=== PATIENT | female | born 1955 | race Caucasian/White ===

== ENCOUNTER 2020-07-08 06:49 | Inpatient (IN) | payer MEDICAID, SELFPAY ==
[2020-07-08] VITALS (11 sets, daily range): BP systolic 96–163; BP diastolic 41–105
[~2020-07-08] VITALS: Ht 172.7 cm; Wt 90.7 kg
[~2020-07-08 06:49] MED LIST: NO MEDS
--- NOTE | 2020-07-08 06:49 | NUR ---
PT HA ALS. TAKEN TO BED 10
--- NOTE | 2020-07-08 06:52 | NUR ---
65 YO F [place] [facility] [place]/O DESATURATION, PT FOUND TO BE 80%. UPON ARRIVAL PT IS 100% SPO2. TRACH TO VENT, AFEBRILE @ THIS TIME 99.2 ST 120-130S, RR 30-40S. PEG TUBE IN PLACE CLAMPED, HYPOACTIVE BOWEL SOUNDS, INCONTINENT TO URINE/STOOL. SKIN NON INTACT WITH MULTIPLE WOUNDS. MIDLINE TO R UPPER ARM NOTED. GURNEY LOCKED IN LOWEST POSITION. ERMD MADE AWARE. HX: CHF, HTN, ENCEPHOLAPTHY, COVID, RESP FAILURE, PNA, DM AX: NKA
[2020-07-08] MEDS ORDERED: NACL 0.9% 500 ML IV ONE (07:15)
[2020-07-08] MEDS ORDERED: ASCO500T95 GT (07:22)
[2020-07-08] MEDS ORDERED: PANT40EC GT (07:22)
[2020-07-08] MEDS ORDERED: FURO-570 GT (07:22)
[2020-07-08] MEDS ORDERED: ASPI-1822 GT (07:22)
[2020-07-08] MEDS ORDERED: COL100L GT (07:22)
[2020-07-08] MEDS ORDERED: CLON-268 GT (07:22)
[2020-07-08] MEDS ORDERED: INSU100V6 SQ (07:22)
[2020-07-08] MEDS ORDERED: INSU100S22 SUBQ (07:22)
[2020-07-08] MEDS ORDERED: DEXT15DR6 OP (07:22)
[2020-07-08] MEDS ORDERED: POTA10TE30 GT (07:22)
[2020-07-08] MEDS ORDERED: LOV40I SUBQ (07:22)
[2020-07-08] MEDS ORDERED: VITA-16 GT (07:22)
[2020-07-08] MEDS ORDERED: METO25TA GT (07:22)
[2020-07-08] MEDS ORDERED: ATI.5 GT (07:22)
[2020-07-08] MEDS ORDERED: NUTR-583 GT (07:22)
[2020-07-08] MEDS ORDERED: VANCOMYCIN 1GM/DEXT 5% PREMIX 200 ML IV ONE (07:40)
[2020-07-08] MEDS ORDERED: VANCOMYCIN PER PHARMACY MC PRN ×2 (07:40→12:45)
[2020-07-08] MEDS ORDERED: ACETAMINOPHEN 650 MG SUPP RC ONE (07:40)
[2020-07-08] MEDS ORDERED: CEFEPIME 1,000 MG in DEXTROSE 5% 50 ML IV ONE (07:40)
[2020-07-08] MEDS ORDERED: CEFEPIME 1,000 MG VIAL ONE (07:43)
[2020-07-08] MEDS ORDERED: VANCOMYCIN 1,000 MG VIAL ONE (07:44)
[2020-07-08 07:51] LABS: HEMATOCRIT 28.3 % (36-48); HEMOGLOBIN 8.8 g/dL (12.0-16.0); MEAN CORPUSCULAR HEMOGLOBIN 30 pg (27-31); MEAN CORPUSCULAR HGB CONC 31 g/dL (33-37); MEAN CORPUSCULAR VOLUME 95.5 fL (80-94); PLATELET COUNT (AUTO) 371 K/uL (140-450); RED BLOOD CELL COUNT(AUTO) 2.96 MIL/uL (4.20-5.40); RED CELL DISTRIBUTION WIDTH 19.2 % (11.6-13.7); WHITE BLOOD COUNT (AUTO) 24.6 K/uL (4.8-10.8)
--- NOTE | 2020-07-08 08:00 | NUR ---
PT AWAKE, BREATHING TRACH TO MECHANICAL VENTILATION, NO DISTRESS NOTED. PT REMAINS ON MONITOR, VS STABLE.
--- NOTE | 2020-07-08 08:00 | NUR ---
# 16 FR Gregory catheter with 10 ml utilizing sterile technique. Immediate return of 100 ml YELLOW, CLEAR urine noted. Bedside drainage bag placed below level of bladder. Urine sample collected and sent to lab. Pt tolerated procedure WITHOUT INCIDENT.
[2020-07-08 08:01] LABS: LYMPHOCYTES % (MANUAL) 7 % (20-46); MONOCYTES % (MANUAL) 10 % (5-12)
[2020-07-08 08:06] LABS: LACTATE DEHYDROGENASE 544 U/L (81-234)
[2020-07-08 08:09] LABS: C-REACTIVE PROTEIN QUANT 5.3 mg/dL (0.0-0.9)
[2020-07-08 08:16] LABS: ALBUMIN 2.5 g/dL (3.4-5.0); ANION GAP 11.5 (8-16); CARBON DIOXIDE 35.1 mmol/L (21-32); CREATININE 1.2 mg/dL (0.6-1.3); POTASSIUM 5.6 mmol/L (3.5-5.1); TOTAL BILIRUBIN 0.6 mg/dL (0.0-1.0)
--- NOTE | 2020-07-08 08:35 | NUR ---
TWO COVID SWABS TAKEN TO LAB
[2020-07-08] MEDS ORDERED: DOCUSATE SODIUM 100 MG GELCAP PO PRN (08:50)
[2020-07-08] MEDS ORDERED: LORazepam 2 MG/ML VIAL IM/IVP PRN (08:50)
[2020-07-08] MEDS ORDERED: SODIUM PHOS / POTASSIUM PHOS 1 PKT PDR PO PRN (08:50)
[2020-07-08] MEDS ORDERED: MAG SULF 2000 MG/WATER PREMIX 50 ML IV PRN (08:50)
[2020-07-08] MEDS ORDERED: DOCUSATE 100 MG/10 ML UDC GT PRN (09:00)
[2020-07-08] MEDS ORDERED: ZINC SULF 220 MG CAP PO SCH (09:00)
[2020-07-08] MEDS ORDERED: ASCORBIC ACID 500 MG TAB PO SCH (09:00)
[2020-07-08] MEDS ORDERED: VITAMIN D 400 IU TAB PO SCH (09:00)
[2020-07-08] MEDS ORDERED: DEXTROSE 50% 50 ML SYR IVP PRN (09:00)
--- NOTE | 2020-07-08 09:00 | NUR ---
Tc Machadokaitychristineharris, Son . point of contact
[2020-07-08 09:07] LABS: APPEARANCE,URINE CLEAR (CLEAR); BILIRUBIN,URINE NEGATIVE (NEGATIVE); BLOOD, URINE NEGATIVE (NEGATIVE); COLOR,URINE YELLOW (YELLOW); LEUKOCYTE ESTERASE ,URINE NEGATIVE (NEGATIVE); NITRITE, URINE NEGATIVE (NEGATIVE); UGLUCOSE NEGATIVE (NEGATIVE)
[2020-07-08 09:16] LABS: RBC,URINE 0-5 /HPF (0-5); WBC,URINE 0-5 /HPF (0-5)
[2020-07-08 09:17] LABS: FINE GRANULAR CASTS,URINE 0-10 /LPF (None Seen)
[2020-07-08 09:31] LABS: MAGNESIUM 2.6 mg/dL (1.8-2.4)
[2020-07-08] MEDS ORDERED: CRUSHER, PILL MC ONE (09:34)
[2020-07-08] MEDS: ENOXAPARIN 40 MG/0.4 ML SYR SUBQ SCH (09:38)
[2020-07-08] MEDS: PANTOPRAZOLE 40 MG TABEC PO SCH (09:39)
[2020-07-08] MEDS: VITAMIN D 400 IU TAB GT SCH (09:39)
[2020-07-08] MEDS: ASPIRIN 81 MG TAB.CHEW GT SCH (09:39)
[2020-07-08] MEDS: ASCORBIC ACID 500 MG TAB GT SCH (09:39)
[2020-07-08] MEDS: METOPROLOL 25 MG TAB GT SCH ×2 (09:40→21:00)
[2020-07-08 09:46] LABS: PHOSPHORUS 10.5 mg/dL (2.5-4.9)
[2020-07-08] MEDS: NACL 0.9% 1,000 ML IV SCH (09:52)
--- NOTE | 2020-07-08 10:00 | NUR ---
PT AWAKE, BREATHING TRACH TO MECHANICAL VENTILATION, NO DISTRESS NOTED. PT REMAINS ON MONITOR, VS STABLE.
--- NOTE | 2020-07-08 11:24 | NUR ---
Jennifer cisneros in [facility] - 07/08/20 at 1125 by [facility] PT BACK FROM CT
--- NOTE | 2020-07-08 12:00 | NUR ---
PT AWAKE, BREATHING TRACH TO MECHANICAL VENTILATION, NO DISTRESS NOTED. PT REMAINS ON MONITOR, VS STABLE.
[2020-07-08] MEDS: BLOOD GLUCOSE MONITORING 1 DEV DEV FS SCH ×3 (12:30→21:00)
[2020-07-08] MEDS ORDERED: CEFEPIME 2,000 MG VIAL IV ONE (13:54)
[2020-07-08] MEDS: CEFEPIME 2,000 MG in DEXTROSE 5% 100 ML IV SCH ×2 (14:04→21:00)
--- NOTE | 2020-07-08 14:30 | NUR ---
Patient will be admitted to care of [facility]. Admited to ICU OVERFLOW. Will go to room 102A. Belongings list completed. Report to FREYA GALLAGHER.
--- NOTE | 2020-07-08 15:00 | NUR ---
RECEIVED REPORT FROM ER NURSE. ADMITTED 65Y/O FEM[place] [facility] WITH CC OF HYPOXIA AND ADMITTING DX OF SEPSIS AND ACUTE RESPIRATORY FAILURE. PT IN BED, HOB ELEVATED. OPENS EYES, TRACKS, RESPONSIVE TO VOICE. APHASIC, UNABLE TO MAKE NEEDS KNOWN. TRACH TO VENT. VENT SETTINGS: AC/PRVC FIO2 55% PEEP 5 . WITH BIPIN MID LINE INFUSING CEFEPIME ORDERED. GT INTACT AND PATENT. DAVIS CATHETER INTACT. SAFETY PRECAUTIONS IN PLACE. WILL CONTINUE TO MONITOR
--- NOTE | 2020-07-08 15:10 | NUR ---
WITH LEFT BUTTOCK OPEN WOUND, DRESSING REINFORCED
--- NOTE | 2020-07-08 17:00 | NUR ---
BLOOD SUGAR 112 NO COVERAGE
--- NOTE | 2020-07-08 19:10 | NUR ---
RECEIVED PATIENT FROM AM SHIFT NURSE FOR CONTINUITY OF CARE. ABLE TO MAKE SIMPLE NEEDS KNOWN. TRACH TO VENT. VENT SETTINGS: ACPRVC FIO2 50% VT 350 RR 20 PEEP 6. NO S/S RESPIRATORY DISTRESS. SUCTIONED THIN WHITE SECRETIONS. SKIN WARM, DRY. BIPIN MIDLINE NOTED, INFUSING FLUIDS WELL. NO C/O PAIN. ABDOMEN SOFT, NONTENDER, NONDISTENDED. BOWEL SOUNDS ACTIVE X4 QUADRANTS. GT PATENT. DAVIS CATHETER PATENT WITH CLEAR YELLOW URINE DRAINING TO GRAVITY. PLAN OF CARE DISCUSSED. ISOLATION PRECAUTIONS OBSERVED. SAFETY PRECAUTIONS IN PLACE. FREQUENT ROUNDS BY ALL STAFF.
[2020-07-08] MEDS: VANCOMYCIN 1,000 MG in DEXTROSE 5% 250 ML IV SCH (21:00)
[2020-07-08] MEDS: FUROSEMIDE 40 MG TAB GT SCH (21:00)
--- NOTE | 2020-07-08 21:00 | NUR ---
DUE MEDS GIVEN. NO S/S ACUTE DISTRESS. CALL LIGHT WITHIN REACH SAFETY PRECAUTIONS IN PLACE. ISOLATION PRECAUTIONS OBSERVED.
--- NOTE | 2020-07-08 23:30 | NUR ---
SPOKE TO LU SON TO UPDATE HIM ON PATIENT'S CONDITION. LU'S PHONE NUMBER: [phone]. AUREA'S PHONE NUMBER (2ND SON) IF LU IS UNABLE TO BE REACHED: [phone].
[2020-07-09] VITALS (15 sets, daily range): BP systolic 118–157; BP diastolic 43–97
--- NOTE | 2020-07-09 01:00 | NUR ---
MADE ROUNDS. PATIENT IS ASLEEP. NO S/S ACUTE DISTRESS. CALL LIGHT WITHIN REACH SAFETY PRECAUTIONS IN PLACE. ISOLATION PRECAUTIONS OBSERVED.
--- NOTE | 2020-07-09 03:52 | NUR ---
PATIENT TURNED AND REPOSITIONED FOR COMFORT. NO S/S ACUTE DISTRESS. CALL LIGHT WITHIN REACH SAFETY PRECAUTIONS IN PLACE. ISOLATION PRECAUTIONS OBSERVED.
[2020-07-09] MEDS ORDERED: CALCIUM ACETATE 667 MG TAB GT SCH (04:20)
[2020-07-09] MEDS ORDERED: SODIUM ZIRCONIUM CYCLOSILICATE 10 GM POWD.PACK PO SCH (04:20)
--- NOTE | 2020-07-09 04:30 | NUR ---
PATIENT ASLEEP. NO S/S ACUTE DISTRESS. CALL LIGHT WITHIN REACH SAFETY PRECAUTIONS IN PLACE. ISOLATION PRECAUTIONS OBSERVED.
[2020-07-09] MEDS: CEFEPIME 2,000 MG in DEXTROSE 5% 100 ML IV SCH ×3 (05:00→21:00)
--- NOTE | 2020-07-09 06:00 | NUR ---
INCONTINENT CARE RENDERED. NO S/S ACUTE DISTRESS. CALL LIGHT WITHIN REACH SAFETY PRECAUTIONS IN PLACE. ISOLATION PRECAUTIONS OBSERVED.
[2020-07-09] MEDS: INSULIN LISPRO SLIDING SCALE 100 UNITS/ML VIAL SUBQ PRN ×3 (06:55→21:46)
[2020-07-09] MEDS: BLOOD GLUCOSE MONITORING 1 DEV DEV FS SCH ×4 (06:55→21:00)
--- NOTE | 2020-07-09 07:40 | NUR ---
RECEIVED REPORT FROM ROLLWAY MAN NURSE. PATIENT IN CRITICAL CONDITION. WILL CONTINUE TO MONITOR.
[2020-07-09 08:10] LABS: BASOPHILS # (AUTO) 0.1 K/uL (0.00-0.22); BASOPHILS % (AUTO) 0.9 % (0.0-2.0); EOSINOPHILS # (AUTO) 0.2 K/uL (0-0.4); EOSINOPHILS % (AUTO) 1.3 % (0.0-4.0); HEMATOCRIT 26.3 % (36-48); HEMOGLOBIN 8.4 g/dL (12.0-16.0); LYMPHOCYTES # (AUTO) 2.1 K/uL (2.5-16.5); MEAN CORPUSCULAR HEMOGLOBIN 30 pg (27-31); MEAN CORPUSCULAR HGB CONC 32 g/dL (33-37); MEAN CORPUSCULAR VOLUME 93.8 fL (80-94); MONOCYTES # (AUTO) 0.6 K/uL (0.8-1.0); NEUTROPHILS # (AUTO) 12.7 K/uL (1.8-7.7); NEUTROPHILS % (AUTO) 80.8 % (42.2-75.2); PLATELET COUNT (AUTO) 281 K/uL (140-450); RED CELL DISTRIBUTION WIDTH 18.4 % (11.6-13.7); WHITE BLOOD COUNT (AUTO) 15.8 K/uL (4.8-10.8)
[2020-07-09 08:36] LABS: CARBON DIOXIDE 33.5 mmol/L (21-32); CREATININE 0.6 mg/dL (0.6-1.3); POTASSIUM 3.5 mmol/L (3.5-5.1)
[2020-07-09 08:41] LABS: MAGNESIUM 2.2 mg/dL (1.8-2.4); PHOSPHORUS 3.5 mg/dL (2.5-4.9)
[2020-07-09] MEDS: NACL 0.9% 1,000 ML IV SCH (08:50)
--- NOTE | 2020-07-09 09:07 | NUR ---
PATIENT HAS BEEN SCREENED AND CATEGORIZED HIGH NUTRITION RISK. PATIENT WILL BE SEEN WITHIN 1-2 DAYS OF ADMISSION. 07/09/[address]
[2020-07-09] MEDS: METOPROLOL 25 MG TAB GT SCH ×2 (09:12→21:00)
[2020-07-09] MEDS: FUROSEMIDE 40 MG TAB GT SCH ×2 (09:13→21:00)
[2020-07-09] MEDS: ZINC SULF 220 MG CAP GT SCH (09:13)
[2020-07-09] MEDS: VITAMIN D 400 IU TAB GT SCH (09:13)
[2020-07-09] MEDS: ASCORBIC ACID 500 MG TAB GT SCH (09:13)
[2020-07-09] MEDS: ENOXAPARIN 40 MG/0.4 ML SYR SUBQ SCH (09:13)
[2020-07-09] MEDS: PANTOPRAZOLE 40 MG TABEC PO SCH (09:13)
[2020-07-09] MEDS: ASPIRIN 81 MG TAB.CHEW GT SCH (09:13)
[2020-07-09] MEDS: POLYVINYL ALCOHOL 1.4% OP 15 ML SOL BOTH EYES SCH (09:14)
[2020-07-09] MEDS: VANCOMYCIN 1,000 MG in DEXTROSE 5% 250 ML IV SCH ×2 (09:30→21:00)
--- NOTE | 2020-07-09 10:51 | NUR ---
SOCIAL WORK NOTE: Patient's Orientation Unable To Assess Information Provided By LU ZIEGLER - SON Comments SW WAS UNABLE TO MEET PATIENT AT BEDSIDE. SW CONTACTED EMERGENCY CONTACT AND WAS PROVIDED DIFFERENT PHONE NUMBER. Branding Machine Operator, Realtionship and Phone Number LU THORPE [phone] Healthcare Power of Executive Associate No Does Patient Have a POLST No Identifying Problems No Social Work Triggers Is A Social Work Consult Needed No Mandate Report Filed No Explanation Of Identifying Problems PATIENT IS A 65-YEAR-OLD FEMALE ADMITTED FOR SEPSIS AND ACUTE RESPIRATORY FAILURE. PATIENT HAS PMHX OF ASTHMA, CARDIAC DISORDERS, COPD, DIABETES, AND DEMENTIA. Admitted From [facility] - [phone] Pre-Admission Level Of Functioning Status Independent/Ambulatory Level Of Functioning Comment PATIENT'S SON STATED THAT PATIENT WAS INDEPENDENT AT BASELINE. Prior Resources/Services Used In Last 12 Months SNF Rehab/Skilled Prior Resources/Service Comments PATIENT WAS A SKILLED PATIENT AT [facility] FOR LESS THAN 24 HOURS. SON STATED THAT HE WOULD PREFER FOR PATIENT TO NOT RETURN TO [facility]. SON ALSO STATED THAT PATIENT NOW IS ASSIGNED TO [facility]. Prior DME Trach Supplies Dialysis Comments N/A Patient Had Caregiver No Home Support No Caregiver Issues Financial Issues No Known Financial Issue Referral To The Financial Counselor Needed No Factors/Needs SNF/NH Placement Explanation And Or Other Factors Affecting/Possible DC Needs PATIENT'S SON STATED THAT HE DOES NOT WANT PATIENT TO RETURN TO [facility] UNDER ANY CIRCUMSTANCES. Pt/Rep Participated In Discharge Plan Yes Patient/Family Agress With Discharge Plan Yes Discharge Plan Comments TENTATIVE DISCHARGE PLAN IS FOR PATIENT TO HAVE SNF PLACEMENT. DC Plan Status Initiated
--- NOTE | 2020-07-09 11:30 | NUR ---
WOUND CARE NURSE AT BEDSIDE. ASSISTED WITH WOUND ASSESSMENT. CLEANED PATIENT PATIENT HAD 1 BM. PATIENT TOLERATED WELL. WILL CONTINUE TO MONITOR.
--- NOTE | 2020-07-09 12:41 | NUR ---
SCHEDULED MEDICATIONS DUE GIVEN. WILL CONTINUE TO MONITOR.
--- NOTE | 2020-07-09 12:55 | NUR ---
WOUND CARE EVALUATION NOTE: SKIN ASSESSMENT DONE WITH PRIMARY RN ON THIS 65 Y/O HX OF COVID POSITIVE, TODAY PCR IS PENDING. PT. WITH RESPIRATORY FAILURE WITH TRACH. SKIN ASSESSMENT DONE WITH PRIMARY RN, PT. ADMITTED WITH PRESSURE INJURY TO COCCYX AND BUTTOCKS. POC DISCUSSED WITH PRIMARY RN. COMORBIDITIES RELATED TO DELAY WOUND HEALING, FURTHER SKIN BREAKS: BOWEL INCONTINENCE, INFECTION, HYPOXEMIC DECREASE TISSUE PERFUSION, TISSUE ISCHEMIA, DECREASE MOBILITY AND FUNCTIONAL ABILITIES, AND HOB ELEVATED MOST OF TIMES DUE TO MEDICAL REASONS. INTEGUMENTARY: -ORAL MUCOSA AND LIPS ARE CLEAN AND MOIST -TRACH AND PEG CHERRY-STOMA SKIN DRY AND INTACT -LEFT CHECK MULTIPLE DRY BROWN SCABS WITH LARGEST 2X3CM, NO ODOR, CHERRY WOUNS SKIN INTACT. -COVID RELATED SKIN ISCHEMIA PARTIAL THICKNESS SKIN LOSS IN BETWEEN BUTTOCKS GROVE TOWARD COCCYX 2X1X0.1CM, WOUND BED IS 100% MAROON COLOR SKIN, IRREGULAR SHAPE SKIN THIN AND PARTIALLY TORN, CHERRY WOUND SKIN PURPLE AND MOIST, INDICATED FURTHER DAMAGE -COVID RELATED SKIN FAILURE PARTIAL THICKNESS SKIN LOSS LEFT BUTTOCK 4X3CM 100% PINK COLOR WOUND BED, MOIST, NO ODOR, CHERRY WOUND SKIN INTACT. -COVID RELATED SKIN FAILURE PARTIAL THICKNESS SKIN LOSS RIGHT BUTTOCK 1X1X0.1CM WOUND BED IS 100% MAROON COLOR SKIN, ROUND SHAPE SKIN THIN AND PARTIALLY TORN, CHERRY WOUND SKIN PURPLE AND MOIST, INDICATED FURTHER DAMAGE -LEFT AND RIGHT HEELS THIN CALLUS, BLE TRACE EDEMA RECOMMENDATION: -PAINT LEFT CHEEK WITH BETADINE BID AND JASMYNE -CLEANSE COCCYX AND LEFT AND RIGHT BUTTOCKS WOUNDS WITH NS, PAT DRY, APPLY THERAHONEY GEL AND COVER WITH DRY DRESSING QD AND PRN IF SOILING -HEEL PROTECTORS TO BILATERAL HEELS, OFFLOADING -TURN AND REPOSITION PATIENT Q 2H -ASSESS AND MONITOR SKIN CONDITION DURING POSITION CHANGE -OFFLOAD BILATERAL HEELS BY PLACING PILLOWS UNDER CALVES AT ALL TIMES, UNLESS OTHERWISE CONTRAINDICATED -PRESSURE REDISTRIBUTION BY PLACING PILLOWS AND OFFLOADING SACRALCOCCYX -KEEP SKIN CLEAN AND DRY AT ALL TIMES.
--- NOTE | 2020-07-09 13:30 | NUR ---
PERFORMED ORAL CARE. NO DISTRESS NOTED. CONDITION UNCHANGED. WILL CONTINUE TO MONITOR.
--- NOTE | 2020-07-09 14:04 | NUR ---
07/09/20 RD INITIAL ASSESSMENT COMPLETED PLEASE REFER TO NUTRITION ASSESSMENT UNDER CARE ACTIVITY FOR ESTIMATED NUTRITIONAL NEEDS. 1. RECOMMEND INCREASING GOAL RATE TO GLUCERNA 1.2 @ 45 ML/HR WITH PROSOURCE BID -THIS WILL PROVIDE 1080 ML OF VOLUME, 869 ML OF WATER, 1416 KCAL AND 94. THIS WILL PROVIDE >100% OF ESTIMATED NUTRIENT NEEDS. 2. CONTINUE FREE WATER FLUSH 100 ML Q6H 3. CONTINUE VITAMIN C AND ZINC SUPPLEMENTATION FOR WOUND HEALING 4. RD TO FOLLOW-UP 2-3 DAYS, HIGH RISK FRIDA ZAVALA RD
[2020-07-09] MEDS: THERAHONEY GEL 42.5 GM TP SCH (14:30)
--- NOTE | 2020-07-09 16:00 | NUR ---
TOOK PATIENT FOR CT CHEST AND BACK TO BED. WILL CONTINUE TO MONITOR.
--- NOTE | 2020-07-09 16:53 | NUR ---
Covid results received from lab. Results = Positive. Hard copy requested from lab and placed in infection controls mailbox.
--- NOTE | 2020-07-09 16:58 | NUR ---
VERBAL CONSENT OBTAINED FROM PATIENT'S SON REQUESTING MEDICAL RECORDS FROM [facility]. FAXED TO [facility].
--- NOTE | 2020-07-09 19:10 | NUR ---
GAVE REPORT TO HEALTH CENTER ASSISTANT NURSE FOR CONTINUITY OF CARE. PATIENT IN STABLE CONDITION.
[2020-07-09] MEDS ORDERED: CRUSHER, PILL MC ONE (21:31)
[2020-07-10] VITALS: BP 146/80
[2020-07-10] MEDS: GAUZE TP SCH ×2 (00:22→13:18)
[2020-07-10 04:00] VITALS: BP 105/63
[2020-07-10] MEDS: CEFEPIME 2,000 MG in DEXTROSE 5% 100 ML IV SCH ×3 (04:02→20:11)
[2020-07-10] MEDS: ACETAMINOPHEN 325 MG TAB PO PRN (06:01)
[2020-07-10] MEDS: BLOOD GLUCOSE MONITORING 1 DEV DEV FS SCH ×4 (06:35→20:29)
[2020-07-10] MEDS: INSULIN LISPRO SLIDING SCALE 100 UNITS/ML VIAL SUBQ PRN ×4 (06:35→20:35)
--- NOTE | 2020-07-10 07:45 | NUR ---
RECEIVED BEDSIDE ENDORSEMENT FROM NIGHTSCAFT NURSE FOR CONTINUITY OF CARE.
[2020-07-10 08:00] VITALS: BP 177/75
[2020-07-10 08:25] LABS: BASOPHILS # (AUTO) 0.1 K/uL (0.00-0.22); BASOPHILS % (AUTO) 0.6 % (0.0-2.0); EOSINOPHILS # (AUTO) 0.3 K/uL (0-0.4); EOSINOPHILS % (AUTO) 2.5 % (0.0-4.0); HEMATOCRIT 24.8 % (36-48); LYMPHOCYTES # (AUTO) 1.7 K/uL (2.5-16.5); MEAN CORPUSCULAR HEMOGLOBIN 30 pg (27-31); MEAN CORPUSCULAR HGB CONC 32 g/dL (33-37); MEAN CORPUSCULAR VOLUME 93.2 fL (80-94); MONOCYTES # (AUTO) 0.6 K/uL (0.8-1.0); MONOCYTES % (AUTO) 4.8 % (1.7-9.3); NEUTROPHILS # (AUTO) 9.4 K/uL (1.8-7.7); NEUTROPHILS % (AUTO) 78.1 % (42.2-75.2); PLATELET COUNT (AUTO) 248 K/uL (140-450); RED BLOOD CELL COUNT(AUTO) 2.67 MIL/uL (4.20-5.40); WHITE BLOOD COUNT (AUTO) 12.1 K/uL (4.8-10.8)
[2020-07-10 08:41] LABS: ANION GAP 11.2 (8-16); CREATININE 0.6 mg/dL (0.6-1.3); POTASSIUM 3.2 mmol/L (3.5-5.1)
[2020-07-10] MEDS: NACL 0.9% 1,000 ML IV SCH (08:47)
[2020-07-10] MEDS: ASPIRIN 81 MG TAB.CHEW GT SCH (08:47)
[2020-07-10] MEDS: ZINC SULF 220 MG CAP GT SCH (08:48)
[2020-07-10] MEDS: VANCOMYCIN 1,000 MG in DEXTROSE 5% 250 ML IV SCH ×2 (09:00→21:43)
[2020-07-10] MEDS: METOPROLOL 25 MG TAB GT SCH ×2 (09:07→20:28)
[2020-07-10] MEDS: FUROSEMIDE 40 MG TAB GT SCH ×2 (09:08→20:29)
[2020-07-10] MEDS: VITAMIN D 400 IU TAB GT SCH (09:08)
[2020-07-10] MEDS: PANTOPRAZOLE 40 MG INJ VIAL IVP SCH (09:09)
[2020-07-10] MEDS: ATORVASTATIN 20 MG TAB PO SCH (09:09)
[2020-07-10] MEDS: ASCORBIC ACID 500 MG TAB GT SCH (09:09)
[2020-07-10] MEDS: ENOXAPARIN 40 MG/0.4 ML SYR SUBQ SCH (09:14)
[2020-07-10] MEDS: POLYVINYL ALCOHOL 1.4% OP 15 ML SOL BOTH EYES SCH (09:29)
--- NOTE | 2020-07-10 09:29 | NUR ---
ADMINISTERED PRESCRIBED MEDS PER MD ORDER. PATIENT TOLERATED WELL. ABLE TO RESPOND WITH HEAD NODS. MEDICATION EDUCATION REINFORCEMENT NEEDED. PATIENT TEMP 98.2; RR 30. MD NOTIFIED OF INCREASED RESPIRATIONS.
--- NOTE | 2020-07-10 11:05 | NUR ---
ASSISTED PATIENT DAILY CARE SPONGE BATH AND SUMMER, 1 LARGE RUNNY BM, PERFORMED WOUND CARE. PATIENT SEEN W/ PITTING EDEMA 3+ BLE FROM FOOT TO ANKLE, BUE ON HANDS 3+ PITTING EDEMA. PATIENT TOLERATED CARE WELL. SAFETY MEASURES IN PLACE. WILL CONTINUE TO MONITOR.
--- NOTE | 2020-07-10 11:43 | NUR ---
DISCHARGE PLANNING: THIS IS A 65 Y/O FEMALE PATIENT BIBA FROM [facility] DUE TO HYPOXIA, TACHYPNEA. PAST MEDICAL HISTORY INCLUDE HTN, DM, DYSPHAGIA ON G TUBE, COVID. INITIAL DIAGNOSIS OF SEPSIS, ACUTE RESPIRATORY FAILURE AND PNEUMONIA. CURRENT LABS INCLUDE WBC 12.1, H/H 8.0/24.8, NA/K 143/3.2, BUN/CREA 31/0.6, LIPASE 742. RAPID COVID NEGATIVE, PCR POSITIVE. ON VANCOMYCIN, CEFEPIME. ON TRACH TO VENT, FIO2 35%, PEEP 5, O2 SAT 96%. CARDIO AND PULMO CONSULTS IN PLACE. DC PLAN PENDING ON PATIENT'S RESPONSE TO TREATMENT. Addendum: 07/10/20 at 1155 by Nina Mancia CM DR. DSOUZA REMINDED THAT THEIR IS NO ID CONSULT IN PLACE. HE STATED HE WILL ENTER ONE. Addendum: 07/10/20 at 1340 by Nina Mancia CM RECEIVED A CALL FROM PATIENT'S SON LU CASTRO [phone], STATING THAT HE DOES NOT WANT THE PATIENT TO GO BACK TO [facility] AT ALL. HE ALSO MENTIONED THAT A [facility] IS MUCH BETTER THAN [facility]. THAT PATIENTS ARE WHEELING THEMSELVES UNSUPERVISED ON A BROKEN WHEELCHAIR, HAIR ARE GREASY, HALF NAKED. HE STATES THAT "YOU DO NOT WANT YOUR FAMILY MEMBER TO BE THERE." HE CLAIMED THAT [facility] [place] A CHOICE, THAT HE WAS NOT AWARE ABOUT [facility] UNTIL HE CALLED ON THE DAY OF DC, WHEN THE AMBULANCE WAS THERE PICKING UP THE PATIENT. 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 HE STATED THAT THIS WILL NOT HAPPEN AGAIN, THAT IS WHY HE IS CALLING EARLY AND NOT WAIT UNTIL THE DAY OF DC. HE STATED HE KNOWS HOW IT WORKS THAT THE PATIENT CANNOT STAY IN AN ACUTE HOSPITAL FOR LONG AND ONCE THE PATIENT IS READY TO BE TRANSFERRED TO A LOWER LEVEL CARE ANYTIME SOON. HE ALSO STATED THAT HE KNOWS THAT THE PATIENT IS MUCH BETTER NOW AND PROBABLY IN ONE TO 2 DAYS, PATIENT WILL BE READY TO BE TRANSFERRED OUT. PER LU, IF POSSIBLE IF WE CAN TRANSFER THE PATIENT TO AN ACUTE HOSPITAL, STATING THAT HE KNOWS SOME DOCTORS AT [facility], [facility], [facility] AND [facility] AND IF NOT, LTAC WILL BE FINE [facility] IN [place], [place] AND [place]. BUT HIS FIRST CHOICE FOR LTAC IS [facility]. HE STATED HE DOES NOT MIND THE DISTANCE BECAUSE HE IS NOT ABLE TO SEE THE PATIENT'S ANYWAY DUE TO RESTRICTIONS. EXPLAINED TO HIM THAT [facility] IS NOT ABLE TO ACCEPT TRACH VENT PATIENT AND FOR [place] THEY ARE NOT ABLE TO ACCEPT MEDI-SADA PATIENT'S THAT ARE TRACHED ALREADY. HE ALSO MENTIONED THAT PATIENT USED TO HAVE BLUE SHIELD COVERED [place], BUT DUE TO THE HIGH PREMIUM AND CO PAYMENTS THEY'VE DECIDED TO STOP THE PAYMENT AND IT TERMED Apr. I EXPLAINED TO HIM THAT LOOKING AT THE PICTURE THE PATIENT WILL NEED NURSING HOME CARE AND WITH SNF'S, THEY REQUIRE SECONDARY INSURANCE TO COVER THE ROOM AND BOARD. HE STATED HE WILL START INQUIRING IF HIS MOTHER CAN QUALIFY FOR A PRIVATE INSURANCE. HE ALSO MENTIONED THAT [facility] IS PENDING AT THIS TIME. HE ASKED ME WELL ABOUT MEDICARE WHICH I TOLD HIM THAT I AM NOT FAMILIAR WITH THE PROCESS HOWEVER I CAN FIND OUT AND WILL GET BACK TO HIM. HE STATED HE WILL CALL MEDICARE TO INQUIRE. INFORMED HIM THAT I WILL DISCUSS HIS CONCERNS WITH THE ATTENDING AND IF THERE IS A NEED FOR TRANSFER, I WILL GET BACK TO HIM. PROVIDED HIM OF MY DIRECT NUMBER IF HE WILL HAVE ANY CONCERNS IN THE FUTURE. DR. DSOUZA MADE AWARE. Addendum: 07/11/20 at 1451 by Nina Mancia CM RECEIVED A CALL FROM PATIENT'S SON LU REQUESTING THIS CORPORATE SECURITY MANAGER TO SEND CLINICALS TO [place]. HE STATED THAT HE SPOKE TO THE INTAKE NAMED RICKY GARNER [phone] TELLING HIM TO HAVE CLINICALS SENT OVER TO THEM SO THEY CAN REVIEW. HE PROVIDED ME OF [facility] FAX NUMBER [phone]. INFORMED HIM THAT I WILL SEND CLINICALS WITH HIS CONSENT. Addendum: 07/11/20 at 1609 by Nina Mancia CM RECEIVED ANOTHER CALL FROM PATIENT'S SON LU, TELLING ME THAT HE ASKED ADVISES FROM HIS BEHAVIORAL INSTRUCTOR AND SNF'S COORDINATOR AND BOTH AGREED THAT IT IS UP TO [place] IF THEY WANT TO ACCEPT THE PATIENT OR NOT, HOWEVER IF LTAC IS NOT ABLE TO ACCEPT THE PATIENT THEN HE MIGHT CONSIDER SUB ACUTE: [facility], [facility] AND [facility]. Addendum: 07/13/20 at 1112 by Nina Mancia CM PER [facility], THEY ARE NOT ABLE TO ACCEPT PATIENT DUE TO MEDI-SADA. CONTACTED RICKY TANNER [facility] TO FOLLOW UP REFERRAL, NO ANSWER. LEFT MESSAGE. WILL FOLLOW UP. Addendum: 07/13/20 at 1132 by Nina Mancia CM PATIENT'S SON LU REGARDING PLACEMENT. HE STATED HE KNOWS SOMEONE AT [facility] AND WILL BE CALLING THEM. HE ALSO STATED THAT HE WILL CALL [facility] TO FOLLOW UP. HE MENTIONED THAT HE CONSULTED HIS BEHAVIORAL INSTRUCTOR AND THEY ADVISE HIM NOT TO SEND THE PATIENT TO [facility] AND [facility]. Addendum: 07/13/20 at 1203 by Nina Mancia CM RECEIVED A CALL BACK FROM RICKY KELSEY AT [facility], STATING THAT HER BEHAVIORAL INSTRUCTOR IS INQUIRING ABOUT PNEUMOMEDIASTINUM N THE THE PREVIOUS CXR. INFORMED HER THAT WE DID A VQ SCAN AND IS NEGATIVE. SHE REQUESTED TO SEND UPDATED CLINICALS. UPDATED CLINICALS FAXED TO [facility]. WILL FOLLOW UP. Addendum: 07/13/20 at 1322 by Nettie Leon CM ERICH AKINS: FOLLOWED UP WITH RICKY AT [facility] [phone] PATIENT HAS BEEN ACCEPTED FOR ADMISSIONS PENDING AN AVAILABLE BED. Addendum: 07/14/20 at 0951 by Nettie Leon CM ERICH AKINS: FOLLOWED UP WITH RICKY AT [facility] SHE IS GOING TO FIND OUT IF THEY HAVE AN AVAILABLE BED AND CALL ME BACK. Addendum: 07/14/20 at 1242 by Nettie Leon CM ERICH AKINS: TRIED CONTACTING RICKY TO FOLLOW UP NO ANSWER. LEFT A VOICEMAIL Addendum: 07/14/20 at 1351 by Nettie Leon CM ERICH AKINS: RECEIVED A CALL FROM [facility]ICK[facility] PATIENT HAS BEEN ACCEPTED TO ROOM [facility] UNDER [address]. LOZ[address]O. [address] [place] [address] NUMBER FOR REPORT [phone]. Addendum: 07/14/20 at 1358 by Nettie Leon CM ERICH AKINS: SPOKE TO PATIENTS SON REGARDING ACCEPTANCE AT [facility]. HE STATED THAT HE IS STILL UNDECIDED IF HE WANTS HIS MOTHER TO GO TO [facility] OR [facility]. HE WILL GET BACK TO ME IN A FEW HOURS. Addendum: 07/14/20 at 1422 by Nettie Mayeda CM ERICH AKINS: WILL CALL TRANSPORTATION ARRANGED WITH [facility] [phone] IN CASE [facility] AGREES ON PATIENT GOING TO [facility]. Addendum: 07/14/20 at 1555 by Nettie Leon CM DC LIGHTING FIXTURES DECORATOR: FOLLOWED UP WITH SON HE IS STILL DECIDING ON [facility]. HE WAS ABLE TO SPEAK TO DR. COLEMAN AND BREEZY FORD TO DISCUSS. HE WILL HAVE HIS DECISION BY THE END OF TODAY OR TOMORROW MORNING. Addendum: 07/14/20 at 1629 by Nettie Leon CM DC LIGHTING FIXTURES DECORATOR: RECEIVED A PHONE CALL FROM PATIENTS SON. HE IS REQUESTING TO SEE HIS MOTHER THROUGH THE WINDOW BEFORE SHE DISCHARGES TOMORROW. SPOKE TO HOUSE KOKO MICHAUD AND CHARGE NURSE GEN THEY STATED THAT FAMILY CAN COME AROUND 9:00 AM. NOTIFIED PATIENTS SON TO ASK FOR [facility] TOMORROW MORNING. NOTIFIED DR. COLEMAN WELL Addendum: 07/14/20 at 1632 by Nettie Leon CM ERICH LIGHTING FIXTURES DECORATOR: ACTIVATED WILL CALL TRANSPORTATION WITH [facility] FOR 12:00 PM TOMORROW.
[2020-07-10 12:00] VITALS: BP 139/49
--- NOTE | 2020-07-10 12:40 | NUR ---
ADMINISTERED PRN INSULIN FOR BG 246. PATIENT POTASSIUM 3.2. CALLED PHARMACY TO SEND PRN POTASSIUM. PATIENT LAYING IN BED. IPAD IN FRONT OF HER FOR VIDEO CALLS TO FAMILY. NO SIGNS OF DISTRESS NOTED. SAFETY MEASURES IN PLACE. WILL CONTINUE TO MONITOR.
--- NOTE | 2020-07-10 13:18 | NUR ---
ADMINISTERED PRESCRIBED MED PER MD ORDER. PATIENT TOLERATING WELL. MEDICATION EDUCATION PROVIDED, REINFORCEMENT NEEDED DUE TO PATIENT APHASIC/TRACH TO VENT. PATIENT DENIES PAIN. PATIENT IS ALERT AND CURRENTLY WATCHING TELEVISION. SAFETY MEASURES IN PLACE. WILL CONTINUE TO MONITOR.
[2020-07-10] MEDS: THERAHONEY GEL 42.5 GM TP SCH (14:49)
[2020-07-10] MEDS: POTASSIUM CHLORIDE 40 MEQ, LIDOCAINE MPF 1% 25 MG in NACL 0.9% 250 ML IV PRN (14:50)
--- NOTE | 2020-07-10 15:08 | NUR ---
ADMINISTERED PRN POTASSIUM FOR LEVEL BELOW 3.5. PATIENT LAYING IN BED WATCHING TELEVISION. PATIENT TURNED TO LEFT SIDE, PLACED IPAD ON LEAD SPRINKLER FOR PATIENT, EMPTIED DAVIS 450 ML. PATIENT CONT TO HAVE 3+ PITTING EDEMA BUE HANDS TO WRIST AND BLE FOOT TO ANKLE. SOME MILD DECREASE IN EDEMA SINCE THIS MORNING.
[2020-07-10 16:00] VITALS: BP 138/73
--- NOTE | 2020-07-10 18:02 | NUR ---
ASSISTED PATIENT W/ TOILETING. PATIENT HAD 1 MEDIUM BM, RUNNY. OBTAINED TEMP 99.2. PLACED COOL RAG ON PATIENT'S FOREHEAD. SAFETY MEASURES IN PLACE. WILL CONTINUE TO MONITOR.
--- NOTE | 2020-07-10 18:52 | NUR ---
ADMINISTERED PRN INSULIN FOR BG 168. PATIENT TOLERATED WELL. MEDICATION EDUCATION REINFORCEMENT NEEDED. SAFETY MEASURES IN PLACE. WILL CONTINUE TO MONITOR.
--- NOTE | 2020-07-10 19:10 | NUR ---
RECEIVED BEDSIDE REPORT FROM DAY SHIFT NURSE FOR CONTINUITY OF CARE. PT IS LAYING IN BED IN SEMI FOWLERS POSITION. NODDING TO QUESTIONS APPROPRIATELY. PT IS AWAKE. ON TRACH TO VENT WITH FIO2 AT 35%, PEEP 5, RT 20, VT 350. O2 SAT IS 90%, BREATHING UNLABORED. ST ON TELE MONITORING. DAVIS CATH IN PLACE. SKIN IS WARM AND DRY. WOUND ON BUTTOCKS X 2, WITH OPTIFOAM IN PLACE. UPPER ARM MIDLINE ON THE RIGHT, IV IS RUNNING TKO. PLAN OF CARE DISCUSSED. DROPLET PRECAUTIONS IN PLACE.
--- NOTE | 2020-07-10 19:31 | NUR ---
PROVIDED BEDSIDE ENDORSEMENT TO NIGHTSHIFT NURSE FOR CONTINUITY OF CARE.
[2020-07-10 20:00] VITALS: BP 149/80
--- NOTE | 2020-07-10 21:30 | NUR ---
ORAL CARE WAS PROVIDED. PT DID NOT HAVE ANY SECRETIONS AND DID NOT NEED TO BE SUCTIONED. ON TRACH TO VENT WITH O2 SAT AT 94%. BREATHING IS UNLABORED. PT TOLERATED ORAL CARE WELL. SCABS ON LEFT CHEEK APPARENT. PT WAS REPOSITIONED. G TUBE RESIDUAL WAS 30 ML AND NEW G TUBE FEEDING WAS PLACED. PT IS STABLE AT THIS TIME.
--- NOTE | 2020-07-10 22:30 | NUR ---
SPOKE TO SON ON THE PHONE AND ALL QUESTIONS WERE ANSWERED. HELD IPAD WHILE FAMILY FACETIMED PATIENT FOR TEN MINUTES. PT IS STABLE AND FAMILY WAS UPDATED ON THE PLAN OF CARE.
--- NOTE | 2020-07-10 23:30 | NUR ---
PT WAS REPOSITIONED ORDERED. PT WAS PLACED ON HER SIDE WITH PILLOWS IN PLACE TO ELEVATE EXTREMITIES. PICC LINE IS PATENT AND FLUSHING, TKO. NO BM SO FAR ON THE SHIFT, CHUCKS ARE DRY AND IN PLACE. DAVIS CATH IN PLACE AND DRAINING. NO DISTRESS NOTED. TRACH TO VENT, O2 SAT IS 93%.
[2020-07-11] VITALS: BP 155/78
--- NOTE | 2020-07-11 01:30 | NUR ---
PT WAS REPOSITIONED Q 2H ORDERED. TEMP IS STABLE AT THIS TIME, 98.3 F. NO NEED FOR COOLING MEASURES. G TUBE RESIDUAL IS 20 ML. IV IS INFUSING TKO AND PATENT. NO RESPIRATORY DISTRESS NOTED.
[2020-07-11] MEDS: GAUZE TP SCH ×2 (03:16→13:31)
--- NOTE | 2020-07-11 03:33 | NUR ---
ROUNDED ON PT. BREATHING IS UNLABORED ON TRACH TO VENT. ORAL CARE WAS PROVIDED. PT TOLERATED THIS WELL. NO DISTRESS NOTED. G TUBE FEEDING IS RUNNING. PILLOWS WERE USED TO ELEVATE EDEMATOUS EXTREMITIES.
[2020-07-11 04:00] VITALS: BP 168/80
[2020-07-11] MEDS: CEFEPIME 2,000 MG in DEXTROSE 5% 100 ML IV SCH ×3 (05:25→21:48)
[2020-07-11] MEDS: BLOOD GLUCOSE MONITORING 1 DEV DEV FS SCH ×4 (05:31→21:54)
[2020-07-11] MEDS: INSULIN LISPRO SLIDING SCALE 100 UNITS/ML VIAL SUBQ PRN ×4 (05:34→21:54)
[2020-07-11] MEDS: CLONIDINE HYDROCHLORIDE 0.1 MG TAB GT PRN (05:34)
--- NOTE | 2020-07-11 05:34 | NUR ---
CLONIDINE PRN MEDICATION FOR ELEVATED BP WAS ADMINISTERED TO PT. PT'S BP WAS 168/80 AND HR WAS 120. WILL REASSESS AT THE SCHEDULED TIME.
[2020-07-11 06:22] LABS: HEMATOCRIT 25.8 % (36-48); HEMOGLOBIN 8.3 g/dL (12.0-16.0); MEAN CORPUSCULAR HEMOGLOBIN 30 pg (27-31); MEAN CORPUSCULAR HGB CONC 32 g/dL (33-37); MEAN CORPUSCULAR VOLUME 93.3 fL (80-94); PLATELET COUNT (AUTO) 262 K/uL (140-450); RED BLOOD CELL COUNT(AUTO) 2.76 MIL/uL (4.20-5.40); RED CELL DISTRIBUTION WIDTH 18.9 % (11.6-13.7); WHITE BLOOD COUNT (AUTO) 12.8 K/uL (4.8-10.8)
--- NOTE | 2020-07-11 06:30 | NUR ---
PT IS STABLE. BREATHING IS UNLABORED. O2 SAT IS 92% ON TRACH TO VENT, FIO2 40%. IV FLUIDS ARE INFUSING TKO. DAVIS CATH IN PLACE. NO DISTRESS NOTED.
[2020-07-11 06:35] LABS: ANION GAP 11.6 (8-16); CARBON DIOXIDE 30.8 mmol/L (21-32); CREATININE 0.6 mg/dL (0.6-1.3); POTASSIUM 3.4 mmol/L (3.5-5.1)
[2020-07-11 07:11] LABS: EOSINOPHILS % (MANUAL) 3 % (0-4); LYMPHOCYTES % (MANUAL) 12 % (20-46); MONOCYTES % (MANUAL) 4 % (5-12)
--- NOTE | 2020-07-11 07:28 | NUR ---
RECEIVED ON A Handseeing InformationSCAPE R860 VENTILATOR PLUGGED INTO RED OUTLET WITH COMPRESSOR ON AND FUNCTIONING WELL TOLERATING WELL WITHOUT ADVERSE REACTIONS NOTED TO A PORTEX DCT #8 AIRWAY SECURED WITH A ALLAN TRACH TIE CUFF PRESSURE CHECKED NOTED AMBU BAG AT BEDSIDE LOC AWAKE EQUAL CHEST RISE GOOD AERATION THROUGHOUT BILATERAL LUNG QUINN AIRWAY PATENT
--- NOTE | 2020-07-11 07:55 | NUR ---
RECEIVED BEDSIDE ENDORSEMENT FROM NIGHTSVAFT NURSE FOR CONTINUITY OF CARE.
[2020-07-11 08:00] VITALS: BP 151/81
[2020-07-11] MEDS: VITAMIN D 400 IU TAB GT SCH (08:51)
[2020-07-11] MEDS: ASCORBIC ACID 500 MG TAB GT SCH (08:51)
[2020-07-11] MEDS: PANTOPRAZOLE 40 MG INJ VIAL IVP SCH (08:51)
[2020-07-11] MEDS: ZINC SULF 220 MG CAP GT SCH (08:51)
[2020-07-11] MEDS: METOPROLOL 25 MG TAB GT SCH ×2 (08:52→21:49)
[2020-07-11] MEDS: ATORVASTATIN 20 MG TAB PO SCH (08:52)
[2020-07-11] MEDS: ASPIRIN 81 MG TAB.CHEW GT SCH (08:52)
[2020-07-11] MEDS: FUROSEMIDE 40 MG TAB GT SCH ×2 (08:53→21:49)
--- NOTE | 2020-07-11 08:53 | NUR ---
ADMINISTERED PRESCRIBED MEDS PER MD ORDER. PATIENT TOLERATED WELL. MEDICATION EDUCATION REINFORCEMENT NEEDED DUE TO PATIENT BEING APHASIC. SAFETY MEASURES IN PLACE. WILL CONTINUE TO MONITOR.
[2020-07-11] MEDS: ENOXAPARIN 40 MG/0.4 ML SYR SUBQ SCH (08:56)
[2020-07-11] MEDS: NACL 0.9% 1,000 ML IV SCH (08:58)
[2020-07-11] MEDS: POLYVINYL ALCOHOL 1.4% OP 15 ML SOL BOTH EYES SCH (09:19)
--- NOTE | 2020-07-11 10:28 | NUR ---
STABLE GOOD CHEST RISE AIRWAY PATENT
--- NOTE | 2020-07-11 10:49 | NUR ---
ASSISTED PATIENT W/ TOILETING AND SPONGE BATH. PATIENT 1 SMALL BM. DAVIS CATHETER BAG EMPTIED 350 ML. PATIENT TOLERATED WELL. SAFETY MEASURES IN PLACE. WILL CONTINUE TO MONITOR.
--- NOTE | 2020-07-11 10:54 | NUR ---
PATIENT'S POTASSIUM LEVEL 3.4. CONTACTED PHARMACY FOR PRN POTASSIUM CHLORIDE.
--- NOTE | 2020-07-11 11:45 | NUR ---
PT WAS CHANGED AND REPOSITIONED. PT HAD A SMALL BM. BROWN IN COLOR AND SOFT IN CONSISTENCY. NEW LINENS WERE PLACED. PILLOWS WERE PLACED UNDERNEATH BONY REGIONS TO PREVENT SKIN BREAKDOWN. Addendum: 07/12/20 at 0158 by Dorothy Shaffer RN TIME THIS TOOK PLACE WAS 2345 ON 07/11/20, NOT 1145.
[2020-07-11 12:00] VITALS: BP 141/67
--- NOTE | 2020-07-11 13:31 | NUR ---
ADMINISTERED PRESCRIBED MED AND PRN INSULIN FOR BG 262 PRESCRIBED BY MD ORDER. PROVIDED WOUND CARE TO SCABS ON LEFT CHEEK. PATIENT TOLERATED WELL. SAFETY MEASURES IN PLACE. WILL CONTINUE TO MONITOR.
--- NOTE | 2020-07-11 13:33 | NUR ---
STABLE GOOD CHEST RISE DEEP TRACHEAL SUCTION FOR SMALL THICK YELLOW WITH BLOOD TINGE SECRETION AIRWAY PATENT SATURATION 89% ON FIO2 OF 35% PEEP 5cmH2O INCREASED FIO2 TO 40% CARLOS/ELLIOTT NOTIFIED
[2020-07-11] MEDS: THERAHONEY GEL 42.5 GM TP SCH (14:40)
--- NOTE | 2020-07-11 15:40 | NUR ---
ADMINISTERED PRN POTASSIUM FOR LEVEL BELOW 3.5. PATIENT TEMP 100, PLACED COLD COMPRESS ON FOREHEAD COOLING MEASURE. SAFETY MEASURES IN PLACE. WILL CONTINUE TO MONITOR.
[2020-07-11 16:00] VITALS: BP 144/75
--- NOTE | 2020-07-11 16:46 | NUR ---
CALLED RT TO OBTAIN SPUTUM CULTURE PER MD ORDER.
[2020-07-11] MEDS: ALBUTEROL SULFATE/IPRATROPIU 3 ML SOL IH PRN (16:50)
--- NOTE | 2020-07-11 17:19 | NUR ---
ADMINISTERED PRN INSULIN FOR BG 217 PRESCRIBED BY MD ORDER. PATIENT IN BED WATCHING TELEVISION. TEMP 99.9 AFTER COLD COMPRESS TO FOREHEAD, 1600 TEMP 100.0. WILL KEEP COMPRESS ON FOREHEAD AND RECHECK TEMP. SAFETY MEASURES IN PLACE. WILL CONTINUE TO MONITOR.
--- NOTE | 2020-07-11 18:48 | NUR ---
PATIENT IN ROOM WATCHING TELEVISION, RT AT BEDSIDE TUBE FEED REPLACED. PATIENT IS TOLERATING WELL. TEMP REMAINS 99.9. COOLING MEASURES CONTINUED. SAFETY MEASURES IN PLACE. WILL CONTINUE TO MONITOR.
--- NOTE | 2020-07-11 19:10 | NUR ---
RECEIVED BEDSIDE REPORT FROM DAY SHIFT NURSE FOR CONTINUITY OF CARE. PT IS LAYING IN HIGH FOWLERS POSITION WITH EYES OPEN, TRACKING MOVEMENT. PT NODS TO QUESTIONS. BREATHING IS UNLABORED. TRACH TO VENT WITH FIO2 AT 40%. O2 SAT IS 94%. ST ON TELE MONITORING. G TUBE FEEDING IN PLACE RUNNING GLUCERNA 1.2 AT 45 ML PER HOUR PER ORDER. RIGHT UPPER ARM MIDLINE RUNNING TKO. TWO WOUNDS ON THE SACRAL REGION WITH DRESSING INTACT. SCABS ON THE LEFT SIDE OF THE CHEEK. DROPLET PRECAUTIONS FOR COVID POSITIVE. PLAN OF CARE DISCUSSED. PT IS STABLE.
[2020-07-11] MEDS: POTASSIUM CHLORIDE 40 MEQ, LIDOCAINE MPF 1% 25 MG in NACL 0.9% 250 ML IV PRN (19:15)
[2020-07-11 20:00] VITALS: BP 158/82
--- NOTE | 2020-07-11 21:30 | NUR ---
PROVIDED ORAL CARE FOR PT. SUCTIONED THE PT ORALLY. PT APPEARS COLD AND WAS GIVEN AN EXTRA BLANKET. G TUBE RESIDUAL IS 10 ML. O2 SAT IS 94% ON TRACH TO VENT, FIO2 40%. IV WAS FLUSHED AND PATENT. FLUIDS ARE INFUSING TKO. PT WAS REPOSITIONED ORDERED Q2H. DIAPER WAS DRY AND INTACT. DAVIS IN PLACE AND DRAINING CLEAR, YELLOW URINE. WILL CONTINUE TO MONITOR PT.
[2020-07-11] MEDS: INSULIN LANTUS 100 UNITS/ML 10 ML VIAL SUBQ SCH (21:53)
[2020-07-11] MEDS: VANCOMYCIN 1,000 MG in DEXTROSE 5% 250 ML IV SCH (22:19)
--- NOTE | 2020-07-11 22:30 | NUR ---
SPOKE TO SON ON THE PHONE, LU. INFORMED HIM OF THE PLAN OF CARE AND ANSWERED ALL QUESTIONS. SPENT AN EXTENSIVE AMOUNT OF TIME DISCUSSING PT, OVER THIRTY MINUTES. PT HAS BEEN ON FACETIME WITH FAMILY WELL WHILE I HAVE BEEN SPEAKING TO SON ON THE TELEPHONE.
[2020-07-11] MEDS: LORazepam 0.5 MG TAB GT SCH (22:44)
--- NOTE | 2020-07-11 22:44 | NUR ---
PT IS VERY ANXIOUS AND APPEARED TO BE NERVOUS. PT WAS GIVEN ATIVAN PRN FOR ANXIETY. WILL CONTINUE TO MONITOR PT. BP WAS 169/99 AND HR 109.
[2020-07-11] MEDS: ACETAMINOPHEN 325 MG TAB PO PRN (23:03)
--- NOTE | 2020-07-11 23:03 | NUR ---
PT HAS A FEVER OF 100.4 AND IS SHAKING. PT WAS GIVEN TYLENOL PRN FOR FEVER. COOLING MEASURES WERE IMPLEMENTED.
--- NOTE | 2020-07-11 23:47 | NUR ---
TEXTED DR. COLEMAN TO INFORM HIM THAT PT IS TWITCHING AND WENT CROSS EYED MULTIPLE TIMES. ALSO INFORMED HIM OF THE VITALS DESPITE THE MEDICATIONS GIVEN. BP 169/94, HR 116, RR 42, TEMP 100.4 F. INFORMED DOCTOR THAT I GAVE HER SCHEDULED METOPROLOL, TYLENOL PRN, AND ATIVAN PRN. WILL WAIT FOR RESPONSE BACK.
[2020-07-12] VITALS (8 sets, daily range): BP systolic 132–170; BP diastolic 71–94
--- NOTE | 2020-07-12 00:09 | NUR ---
RECEIVED ORDERS FROM DR. COLEMAN. ORDER WAS TO DO A DUONEB, CT SCAN OF THE HEAD URGENT, AND ORDER FOR RT TO INCREASE VENT SETTING TO OBTAIN RR OVER 30. IF THE PT DOES NOT HAVE A RR OVER 30, TRANSFER TO ICU AND [facility]. WILL FOLLOW THROUGH WITH ORDERS.
--- NOTE | 2020-07-12 00:13 | NUR ---
SPOKE TO RT AND RADIOLOGY TO INFORM THEM OF THE HEAD CT SCAN. THEY WILL BOTH BE ON THE UNIT IN FIVE MINUTES TO TRANSFER THE PT.
--- NOTE | 2020-07-12 01:00 | NUR ---
PT IS BEING TAKEN TO CT SCAN ACCOMPANIED BY MYSELF, RT, AND ASSET MANAGEMENT LEAD. WILL CONTINUE TO MONITOR PT AND WAIT FOR RESULTS OF CT SCAN OF THE HEAD.
--- NOTE | 2020-07-12 01:37 | NUR ---
RT AT BEDSIDE ASSESSING AND TREATING PT. PT APPEARS TO BE STABLE. O2 SAT IS 95% ON TRACH TO VENT. G TUBE FEEDING RUNNING, RESIDUAL IS LESS THAN 10 ML. IV FLUIDS ARE INFUSING. PT IS SLEEPING, EYES CLOSED. WILL MONITOR PT.
[2020-07-12] MEDS: ALBUTEROL SULFATE/IPRATROPIU 3 ML SOL IH PRN ×2 (01:38→23:57)
--- NOTE | 2020-07-12 01:38 | NUR ---
EDEN VERDUZCO GIVEN PER . PATIENT TOLERATED WELL, NO ADVERSE REACTION NOTED. PATIENT IS ASLEEP, WILL CONTINUE TO MONITOR. AIRWAY PATENT, LAVAGED AND SXN'D. BLOODY, SMALL CLOTS NOTED. Addendum: 07/12/20 at 0204 by Agency 01 RT RT VENT SETTINGS CHANGED TO AC PRVC RR 30, VT 400, +5, 40%. PT'S RR IS DOWN TO 34 AT THIS TIME. WILL CONTINUE TO MONITOR.
[2020-07-12] MEDS: GAUZE TP SCH ×2 (02:01→13:15)
--- NOTE | 2020-07-12 02:50 | NUR ---
TEXTED DR. COLEMAN TO INFORM HIM OF THE RESULTS OF THE CT SCAN. INFORMED HIM THAT CT SCAN WAS NEGATIVE FOR BLEED; PERIVENTRICULAR CHANGES. BP 132/77, HR 99, TEMP 99, O2 SAT 100%, RR 33. ASKED DR. COLEMAN IF HE WOULD LIKE TO TRANSFER PT TO ICU OR CONTINUE TO MONITOR. WILL WAIT FOR RESPONSE.
--- NOTE | 2020-07-12 03:37 | NUR ---
DR. COLEMAN TEXTED BACK TO MONITOR THE PT. IF THE PT BREATHING RATE INCREASED AND O2 SAT IS DECREASING THEN TO TRANSFER PT TO ICU. WILL CONTINUE TO MONITOR. RR IS 32 AND O2 SAT IS CURRENTLY 100%. PT IS STABLE.
--- NOTE | 2020-07-12 04:31 | NUR ---
TURNED AND REPOSITIONED PT. SHE IS SLEEPING IN SEMI FOWLERS POSITION. RR IS 34 AND HR IS 109. O2 SAT IS 98% ON TRACH TO VENT. NO DISTRESS NOTED. NO SHAKING OR TWITCHING AT THIS TIME. PT IS STABLE.
[2020-07-12] MEDS: CEFEPIME 2,000 MG in DEXTROSE 5% 100 ML IV SCH ×3 (05:40→21:43)
[2020-07-12] MEDS: BLOOD GLUCOSE MONITORING 1 DEV DEV FS SCH ×4 (05:40→21:43)
[2020-07-12] MEDS: INSULIN LISPRO SLIDING SCALE 100 UNITS/ML VIAL SUBQ PRN ×2 (05:48→12:44)
[2020-07-12] MEDS: LORazepam 0.5 MG TAB GT SCH (05:50)
--- NOTE | 2020-07-12 05:50 | NUR ---
PT APPEARS TO BE ANXIOUS, SHAKING, AND FIGHTING THE VENT. PT WAS GIVEN ATIVAN ORDERED PRN FOR ANXIETY. BP WAS 150/72 PRIOR TO ADMINISTRATION AND HR WAS 111. O2 SAT IS 96% ON 35% FIO2 TRACH TO VENT. WILL CONTINUE TO MONITOR FOR ANXIETY. PT WAS ALSO CHANGED AND REPOSITIONED. PT HAD A MODERATE SIZE BM. PT IS AWAKE WITH EYES OPEN, EYES ARE SYMMETRICAL AND NOT CROSSED.
[2020-07-12 06:26] LABS: BASOPHILS # (AUTO) 0.1 K/uL (0.00-0.22); BASOPHILS % (AUTO) 0.6 % (0.0-2.0); EOSINOPHILS # (AUTO) 0.3 K/uL (0-0.4); EOSINOPHILS % (AUTO) 2.6 % (0.0-4.0); HEMATOCRIT 23.2 % (36-48); HEMOGLOBIN 7.6 g/dL (12.0-16.0); LYMPHOCYTES # (AUTO) 1.7 K/uL (2.5-16.5); LYMPHOCYTES % (AUTO) 14.1 % (20.5-51.1); MEAN CORPUSCULAR HEMOGLOBIN 31 pg (27-31); MEAN CORPUSCULAR HGB CONC 33 g/dL (33-37); MEAN CORPUSCULAR VOLUME 92.9 fL (80-94); MONOCYTES # (AUTO) 0.7 K/uL (0.8-1.0); MONOCYTES % (AUTO) 5.8 % (1.7-9.3); NEUTROPHILS # (AUTO) 9.1 K/uL (1.8-7.7); NEUTROPHILS % (AUTO) 76.9 % (42.2-75.2); PLATELET COUNT (AUTO) 238 K/uL (140-450); RED CELL DISTRIBUTION WIDTH 18.9 % (11.6-13.7); WHITE BLOOD COUNT (AUTO) 11.8 K/uL (4.8-10.8)
[2020-07-12 07:10] LABS: CREATININE 0.7 mg/dL (0.6-1.3); POTASSIUM 3.8 mmol/L (3.5-5.1)
--- NOTE | 2020-07-12 07:20 | NUR ---
ENDORSED PT TO DAY SHIFT NURSE FOR CONTINUITY OF CARE. PT IS STABLE AT THIS TIME. CALM, LAYING IN SEMI FOWLERS POSITION WITH TRACH TO VENT. O2 SAT IS 98% AND RR IS 36. NO RESPIRATORY DISTRESS NOTED. PLAN OF CARE DISCUSSED.
--- NOTE | 2020-07-12 07:25 | NUR ---
RECEIVED REPORT FROM NIGHTSHIFT NURSE. PT RESTING IN BED. FLACC 0. RESPIRATIONS EVEN AND UNLABORED WITH NO SOB OR RESPIRATORY DISTRESS. SKIN WARM AND DRY TO TOUCH. IV SITE IN R UPPER ARM MID IS CLEAN, DRY, AND INTACT. SAFETY MEASURES IN PLACE. WILL CONTINUE TO MONITOR
[2020-07-12 07:28] LABS: ANION GAP 11.2 (8-16); CARBON DIOXIDE 30.6 mmol/L (21-32)
[2020-07-12] MEDS: NACL 0.9% 1,000 ML IV SCH (09:37)
[2020-07-12] MEDS: POLYVINYL ALCOHOL 1.4% OP 15 ML SOL BOTH EYES SCH (09:38)
[2020-07-12] MEDS: VITAMIN D 400 IU TAB GT SCH (09:39)
[2020-07-12] MEDS: ASPIRIN 81 MG TAB.CHEW GT SCH (09:39)
[2020-07-12] MEDS: FUROSEMIDE 40 MG TAB GT SCH ×2 (09:40→21:43)
[2020-07-12] MEDS: ASCORBIC ACID 500 MG TAB GT SCH (09:40)
[2020-07-12] MEDS: ATORVASTATIN 20 MG TAB PO SCH (09:41)
[2020-07-12] MEDS: ZINC SULF 220 MG CAP GT SCH (09:42)
[2020-07-12] MEDS: METOPROLOL 25 MG TAB GT SCH ×2 (09:42→21:43)
[2020-07-12] MEDS: PANTOPRAZOLE 40 MG INJ VIAL IVP SCH (09:42)
[2020-07-12] MEDS: ENOXAPARIN 40 MG/0.4 ML SYR SUBQ SCH (09:47)
--- NOTE | 2020-07-12 10:04 | NUR ---
MEDICATION ADMINISTERED PRESCRIBED PER MD ORDER. PT TOLERATED WELL. MEDICATION EDUCATION PERFORMED. PT APHASIC AND UNABLE TO VERBALIZE UNDERSTANDING. SAFETY MEASURES IN PLACE. WILL CONTINUE TO MONITOR
--- NOTE | 2020-07-12 11:30 | NUR ---
PT BLOOD SUGAR IS 245. PRN INSULIN TO BE ADMINISTERED PRESCRIBED PER MD ORDER. PT TOLERATED WELL. SAFETY MEASURES IN PLACE. WILL CONTINUE TO MONITOR
[2020-07-12] MEDS: THERAHONEY GEL 42.5 GM TP SCH (13:15)
--- NOTE | 2020-07-12 14:00 | NUR ---
PT IS SUPPOSED TO GET CT ANGIO CHEST BUT PER SON AUREA [phone] HE SAID THAT THE PT HAS HAD MANY CT AND CHEST XRAYS PERFORMED SO HE IS WORRIED ABOUT HER EXPOSURE TO RADIATION AND WOULD LIKE TO SEE IF WE CAN DO A DIFFERENT SCAN THAT DOES NOT REQUIRE RADIATION. UNTIL THEN, HE WANTS TO WAIT ON CONSENT OF CT. PAGED DR. COLEMAN AND VQ SCAN WAS ORDERED. THE [facility] SU[facility] HAS TO APPROVE OF SCAN, BUT PER MELISA, DR. RAMOS NEEDS TO HAVE APPROVAL. MD AND CHARGE MADE AWARE. PER DR. COLEMAN, VQ SCAN IS NOT AN EMERGENCY SO HE WILL CONTACT DR. RAMOS WHEN HE CAN. UNTIL THEN WE WILL MONITOR PT. CALLED AUREA TO LET HIM KNOW OF THE PLAN AND HE WAS ON BOARD WITH VQ SCAN. AUREA WANTS TO SPEAK WITH DR. COLEMAN ABOUT PT CONDITION. LET DR. COLEMAN KNOW THAT AUREA WOULD LIKE TO SPEAK WITH HIM. SAFETY MEASURES IN PLACE. WILL CONTINUE TO MONITOR
--- NOTE | 2020-07-12 15:30 | NUR ---
07/12/20 RD FOLLOW UP COMPLETED PLEASE REFER TO NUTRITION ASSESSMENT UNDER CARE ACTIVITY FOR ESTIMATED NUTRITIONAL NEEDS. 1. CONT. GLUCERNA 1.2 @ 45 ML/HR -THIS WILL PROVIDE 1080 ML OF VOLUME, 869 ML OF WATER, 1296 KCAL AND 64. THIS WILL PROVIDE THIS IS PROVIDING 100% OF ESTIMATED KCAL NEEDS AND 77% OF PROTEIN NEEDS. 2. CONTINUE FREE WATER FLUSH 100 ML Q6H 3. CONTINUE VITAMIN C AND ZINC SUPPLEMENTATION FOR WOUND HEALING 4. RD TO FOLLOW-UP 2-3 DAYS, HIGH RISK FRIDA ZAVALA RD
--- NOTE | 2020-07-12 16:01 | NUR ---
DR. COLEMAN CHANGED HIS MIND AND WANTS VQ SCAN STAT. PAGED HOUSE SUP TO NOTIFY HER. GOT THE AUTHORIZATION FROM DR. RAMOS. PER JASWANT THE HOUSE SUP, SHE CONTACTED RADIOLOGY TO LET THEM KNOW THAT WE NEED THE VQ SCAN STAT. AND CHARGE MADE AWARE. WILL CONTINUE TO MONITOR
--- NOTE | 2020-07-12 16:30 | NUR ---
PT BLOOD SUGAR IS 249. PRN INSULIN ADMINISTERED PRESCRIBED PER MD ORDER. PT TOLERATED WELL. SAFETY MEASURES IN PLACE. WILL CONTINUE TO MONITOR
--- NOTE | 2020-07-12 17:50 | NUR ---
PT RAN OUT OF G-TUBE FORMULA. STARTED NEW FORMULA PRESCRIBED PER MD ORDER. PT TOLERATED WELL. SAFETY MEASURES IN PLACE. WILL CONTINUE TO MONITOR
--- NOTE | 2020-07-12 19:00 | NUR ---
SKIPKENZIE WANTS TO FACETIME WITH MOM. PROVIDED RESOURCE FACETIME FROM PT IPAD SO THAT SHE CAN COMMUNICATE WITH FAMILY. PT TOLERATED WELL. WILL CONTINUE TO MONITOR
--- NOTE | 2020-07-12 19:25 | NUR ---
ENDORSED TO NIGHTSHIFT FOR CONTINUITY OF CARE. PT IS STABLE
[2020-07-12] MEDS: INSULIN LANTUS 100 UNITS/ML 10 ML VIAL SUBQ SCH (21:00)
[2020-07-12] MEDS: VANCOMYCIN 1,000 MG in DEXTROSE 5% 250 ML IV SCH (21:43)
--- NOTE | 2020-07-12 22:15 | NUR ---
Spoke with Dr. Jones regarding patient fluctuating heart rate elevation of 100-120. Patient medicated with Ativan, and Morphine. Reported to physician patient concerns for medication to lower the heart rate over the phone conversation. Physician instructed ghost writer that he will evaluate patient when he see patient in am. Patient family member informed of physician instructions. Patient family members insist to speak with physician regarding the patient care. Nursing trains dispatcher supervisor informed of patient condition. Patient condition guarded and ongoing with no acute distress noted.
--- NOTE | 2020-07-12 22:16 | NUR ---
PRN DUONEB HHN GIVEN, TOLERATED WELL, NO ADVERSE REACTION NOTED. PT REMAINS STABLE ON CURRENT VENT SETTINGS. NO DISTRESS NOTED AT THIS TIME.
[2020-07-13] MEDS: GAUZE TP SCH ×2 (01:00→13:55)
[2020-07-13] MEDS: LORazepam 0.5 MG TAB GT SCH (02:00)
[2020-07-13] MEDS: MORPHINE SULFATE 2 MG/ML SYR IVP PRN (03:18)
[2020-07-13 04:00] VITALS: BP 146/80
[2020-07-13] MEDS: BLOOD GLUCOSE MONITORING 1 DEV DEV FS SCH ×4 (06:26→21:11)
[2020-07-13 06:41] LABS: BASOPHILS # (AUTO) 0.2 K/uL (0.00-0.22); BASOPHILS % (AUTO) 1.1 % (0.0-2.0); EOSINOPHILS # (AUTO) 0.6 K/uL (0-0.4); EOSINOPHILS % (AUTO) 3.5 % (0.0-4.0); HEMOGLOBIN 8.4 g/dL (12.0-16.0); LYMPHOCYTES # (AUTO) 2.3 K/uL (2.5-16.5); LYMPHOCYTES % (AUTO) 14.2 % (20.5-51.1); MEAN CORPUSCULAR HEMOGLOBIN 30 pg (27-31); MEAN CORPUSCULAR HGB CONC 32 g/dL (33-37); MEAN CORPUSCULAR VOLUME 92.2 fL (80-94); MONOCYTES # (AUTO) 0.8 K/uL (0.8-1.0); MONOCYTES % (AUTO) 4.9 % (1.7-9.3); NEUTROPHILS # (AUTO) 12.4 K/uL (1.8-7.7); NEUTROPHILS % (AUTO) 76.3 % (42.2-75.2); PLATELET COUNT (AUTO) 293 K/uL (140-450); RED BLOOD CELL COUNT(AUTO) 2.82 MIL/uL (4.20-5.40); RED CELL DISTRIBUTION WIDTH 19.2 % (11.6-13.7); WHITE BLOOD COUNT (AUTO) 16.2 K/uL (4.8-10.8)
[2020-07-13 06:56] LABS: ANION GAP 10.5 (8-16); CARBON DIOXIDE 29.9 mmol/L (21-32); CREATININE 0.7 mg/dL (0.6-1.3); POTASSIUM 3.4 mmol/L (3.5-5.1)
--- NOTE | 2020-07-13 07:20 | NUR ---
RECEIVED REPORT FROM NIGHT NURSE FOR CONTINUITY OF CARE. PT TRACH TO VENT. PT AWAKE. AAOX 1-2, PT TRACT TO VENT FIO2 35, PEEP5, TV 400, RR 30, PT HAS BIPIN MIDLINE TKO, DAVIS CATH IN PLACE, FEEDING TUBE IN PLACE INFUSING GLUCERNA AT 45ML/H WITH WATER FLUSH OF 100ML Q6H, PT HAS BILATERAL SACRAL WOUND. SAFETY MEASURES IN PLACE, WILL CONTINUE TO MONITOR.
--- NOTE | 2020-07-13 07:47 | NUR ---
NOTIFIED DR COLEMAN PT HAS ELEVATED WBC: 16.[address] COLEMAN ASKED IF PT HAD PULL OVER SCAN. PER CHARGE NURSE PT HAD PULL OVER SCAN AND ARE AWAITING RESULTS. WILL UPDATE MD WHEN RESULTS ARE IN.
[2020-07-13 08:00] VITALS: BP 160/77
--- NOTE | 2020-07-13 08:38 | NUR ---
RECEIVED TORB FOR POTASSIUM CHLORIDE ELIXIR, [address] ONCE. WILL INPUT ORDER AND CARRY IT OUT.
[2020-07-13] MEDS: NACL 0.9% 1,000 ML IV SCH (08:50)
[2020-07-13] MEDS ORDERED: POTASSIUM CHLORIDE 20% 40 MEQ/15 ML UDC GT SCH (09:00)
[2020-07-13] MEDS: ENOXAPARIN 40 MG/0.4 ML SYR SUBQ SCH (09:36)
[2020-07-13] MEDS: ASCORBIC ACID 500 MG TAB GT SCH (09:37)
[2020-07-13] MEDS: ATORVASTATIN 20 MG TAB PO SCH (09:37)
[2020-07-13] MEDS: ZINC SULF 220 MG CAP GT SCH (09:38)
[2020-07-13] MEDS: METOPROLOL 25 MG TAB GT SCH ×2 (09:38→20:36)
[2020-07-13] MEDS: FUROSEMIDE 40 MG TAB GT SCH ×2 (09:38→20:36)
[2020-07-13] MEDS: VITAMIN D 400 IU TAB GT SCH (09:39)
[2020-07-13] MEDS: ASPIRIN 81 MG TAB.CHEW GT SCH (09:39)
[2020-07-13] MEDS: PANTOPRAZOLE 40 MG INJ VIAL IVP SCH (09:44)
--- NOTE | 2020-07-13 09:54 | NUR ---
ADMINISTERED SCHEDULED MEDICATION, MEDICATION EDUCATION PROVIDED. PT TOLERATED WELL. WILL CONTINUE TO MONITOR.
[2020-07-13] MEDS ORDERED: VANCOMYCIN PER PHARMACY MC PRN (10:00)
[2020-07-13] MEDS: INSULIN LISPRO SLIDING SCALE 100 UNITS/ML VIAL SUBQ PRN ×3 (11:25→21:11)
--- NOTE | 2020-07-13 11:25 | NUR ---
ADMINISTERED 4 UNITS OF HUMALOG FOR BLOOD GLUCOSE OF 216. CALLED RT VENTILATOR IS ALARMING, PT SATURATION AT 91. WILL CONTINUE TO MONITOR
--- NOTE | 2020-07-13 11:45 | NUR ---
NOTIFIED DR COLEMAN PT'S RR ARE 35 AND HAVE BEEN ELEVATED ALL MORNING. RECEIVED VERBAL ORDER TO NOTIFY RT TO INCREASE THE SETTINGS AND BY LATE AFTERNOON IF NO IMPROVEMENT TO NOTIFIED IMAGING TECHNICIAN. CALLED RT AND INFORMED HIM OF MD ORDER, RT TO COME ASSESS PT. WILL CONTINUE TO MONITOR.
[2020-07-13 12:00] VITALS: BP 128/81
[2020-07-13] MEDS: CEFEPIME 2,000 MG in DEXTROSE 5% 100 ML IV SCH ×2 (13:52→20:36)
--- NOTE | 2020-07-13 13:56 | NUR ---
ADMINISTERED SCHEDULED MEDICATION, MEDICATION EDUCATION PROVIDED. PT TOLERATED WELL. WILL CONTINUE TO MONITOR
--- NOTE | 2020-07-13 15:24 | NUR ---
PER DR. COLEMAN I CHANGED THE VENTILATORS SETTINGS FROM VOLUME CONTROL TO PRESSURE CONTROL TO HELP THE PT WITH HER WORK OF BREATHING. PT TOLERATED THE VENTILATOR CHANGE MODE WELL DROPPING HER PIP LOWER WHILE KEEPING AN ACCEPTABLE VTE PER THE PT'S IDEAL BODY WEIGHT VT OF AROUND 7ML PER KG. PT IS TOLERATING THE MODE WELL AND IS STABLE.
[2020-07-13] MEDS: POLYVINYL ALCOHOL 1.4% OP 15 ML SOL BOTH EYES SCH (15:50)
[2020-07-13] MEDS: THERAHONEY GEL 42.5 GM TP SCH (15:51)
[2020-07-13 16:00] VITALS: BP 149/81
--- NOTE | 2020-07-13 16:40 | NUR ---
STARTED PT GLUCERNA FEEDING VIA G-TUBE INFUSING AT 45ML/H WITH WATER FLUSH OF 100 Q6H. PT IS STABLE, WILL CONTINUE TO MONITOR.
--- NOTE | 2020-07-13 17:05 | NUR ---
ADMINISTERED 2 UNITS FOR HUMALOG OF 190, MEDICATION EDUCATION PROVIDED. PT TOLERATED WELL. WILL CONTINUE TO MONITOR.
[2020-07-13] MEDS ORDERED: METOPROLOL 5 MG/5 ML VIAL IV PRN (18:10)
--- NOTE | 2020-07-13 19:17 | NUR ---
ENDORSE PT TO NIGHT NURSE FOR CONTINUITY OF CARE.
--- NOTE | 2020-07-13 19:18 | NUR ---
RECEIVED REPORT FROM DAY SHIFT NURSE. PT IN BED, AWAKE, HOB ELEVATED. PT AOX2, APHASIC. PT ON TRACH CONNECTED TO VENT. PT NOT IN DISTRESS, CURRENT O2 SAT 92%. ABDOMEN IS SOFT AND NON-TENDER, ACTIVE BOWEL SOUNDS NOTED. GTUBE IN PLACE WITH CONTINUOUS FEEDING. SKIN IS WARM AND DRY, PT WITH PRESSURE ULCER ON BUTTOCKS, DRESSING IN PLACE. PT WITH BIPIN MIDLINE PATENT AND INTACT, SALINE LOCKED. NO S/SX OF PAIN OR DISCOMFORT NOTED AT THIS TIME. FLACC 0. PT KEPT COMFORTABLE. SAFETY MEASURES IN PLACE. WILL CONTINUE TO MONITOR.
[2020-07-13 20:00] VITALS: BP 145/75
--- NOTE | 2020-07-13 20:36 | NUR ---
VS STABLE. 0ML GTUBE RESIDUAL NOTED. SCHEDULED MEDS GIVEN ORDERED. PT NOT IN DISTRESS, FLACC 0. PT REPOSITIONED. ASSISTED WITH FACETIME CALL TO FAMILY. SAFETY MEASURES IN PLACE. WILL CONTINUE TO MONITOR.
[2020-07-13] MEDS: VANCOMYCIN 1,000 MG in DEXTROSE 5% 250 ML IV SCH (20:37)
[2020-07-13] MEDS: INSULIN LANTUS 100 UNITS/ML 10 ML VIAL SUBQ SCH (21:11)
--- NOTE | 2020-07-13 22:30 | NUR ---
PT AWAKE, ON FACETIME WITH FAMILY. PT NOT IN DISTRESS. O2 SAT 98%. TRACH CONNECTED TO VENT. NO S/SX OF PAIN OR DISCOMFORT, FLACC 0. SAFETY MEASURES IN PLACE. WILL CONTINUE TO MONITOR.
[2020-07-14] VITALS: BP 151/75
--- NOTE | 2020-07-14 00:11 | NUR ---
VS STABLE. PT RESTING, EYES CLOSED. PT NOT IN DISTRESS. FLACC 0. PT KEPT SAFE AND COMFORTABLE. WILL CONTINUE TO MONITOR.
[2020-07-14] MEDS: GAUZE TP SCH ×2 (00:34→12:25)
--- NOTE | 2020-07-14 02:01 | NUR ---
ASLEEP. TRACH CONNECTED TO VENT. VISIBLE CHEST RISE AND FALL NOTED. NO S/X OF DISTRESS NOTED. O2 SAT 96%. PT KEPT COMFORTABLE. SAFETY MEASURES IN PLACE. WILL CONTINUE TO MONITOR.
[2020-07-14] MEDS: ALBUTEROL SULFATE/IPRATROPIU 3 ML SOL IH PRN (03:33)
[2020-07-14 04:00] VITALS: BP 158/74
--- NOTE | 2020-07-14 04:14 | NUR ---
VS STABLE. PERINEAL CARE, CATHETER CARE, WOUND CARE DONE. PT TURNED AND REPOSITIONED. PT TOLERATED CARE PROVIDED. NO S/SX OF DISTRESS NOTED. PT KEPT COMFORTABLE. SAFETY MEASURES IN PLACE. WILL CONTINUE TO MONITOR.
[2020-07-14] MEDS: CEFEPIME 2,000 MG in DEXTROSE 5% 100 ML IV SCH ×3 (05:32→20:33)
[2020-07-14] MEDS: NACL 0.9% 1,000 ML IV SCH (05:33)
[2020-07-14 06:37] LABS: BASOPHILS # (AUTO) 0.2 K/uL (0.00-0.22); EOSINOPHILS # (AUTO) 0.5 K/uL (0-0.4); EOSINOPHILS % (AUTO) 3.1 % (0.0-4.0); HEMATOCRIT 25.8 % (36-48); HEMOGLOBIN 8.1 g/dL (12.0-16.0); LYMPHOCYTES % (AUTO) 11.9 % (20.5-51.1); MEAN CORPUSCULAR HEMOGLOBIN 30 pg (27-31); MEAN CORPUSCULAR HGB CONC 32 g/dL (33-37); MEAN CORPUSCULAR VOLUME 93.6 fL (80-94); MONOCYTES # (AUTO) 0.8 K/uL (0.8-1.0); MONOCYTES % (AUTO) 4.7 % (1.7-9.3); NEUTROPHILS # (AUTO) 13.1 K/uL (1.8-7.7); NEUTROPHILS % (AUTO) 79.3 % (42.2-75.2); PLATELET COUNT (AUTO) 286 K/uL (140-450); RED BLOOD CELL COUNT(AUTO) 2.76 MIL/uL (4.20-5.40); RED CELL DISTRIBUTION WIDTH 19.3 % (11.6-13.7); WHITE BLOOD COUNT (AUTO) 16.5 K/uL (4.8-10.8)
[2020-07-14] MEDS: BLOOD GLUCOSE MONITORING 1 DEV DEV FS SCH ×4 (06:40→20:23)
[2020-07-14] MEDS: INSULIN LISPRO SLIDING SCALE 100 UNITS/ML VIAL SUBQ PRN ×4 (06:42→20:24)
--- NOTE | 2020-07-14 06:55 | NUR ---
REC'D PT ON [employer] VENT SETTINGS PC 30 RR 30 ITIME 0.80 PEEP 5 FIO2 35% ALARMS ON AND AUDIBLE AND VENT IS PLUGGED INTO RED OUTLET, SXN PT SMALL AMT OF THICK YELLOW SECRETIONS, B\S ARE COARSE BILATERALLY, PT IS TRACH WITH PORTEX 8 PT IS SLEEPING WITH NO SIGNS OF DISTRESS NOTED AT THIS TIME
[2020-07-14 06:56] LABS: CARBON DIOXIDE 29.6 mmol/L (21-32); CREATININE 0.7 mg/dL (0.6-1.3); POTASSIUM 3.6 mmol/L (3.5-5.1)
--- NOTE | 2020-07-14 07:16 | NUR ---
ENDORSED TO DAY SHIFT NURSE FOR CONTINUITY OF CARE
--- NOTE | 2020-07-14 07:21 | NUR ---
RECEIVED BEDSIDE REPORT FROM NIGHTSHIFT NURSE. PT RESTING IN BED. FLACC 0. RESPIRATIONS EVEN AND UNLABORED WITH NO SOB OR RESPIRATORY DISTRESS. SKIN WARM AND DRY TO TOUCH. IV SITE IN R UPPER ARM MIDLINE IS CLEAN, DRY, AND INTACT. SAFETY MEASURES IN PLACE. WILL CONTINUE TO MONITOR
[2020-07-14 08:00] VITALS: BP 144/82
[2020-07-14] MEDS: POLYVINYL ALCOHOL 1.4% OP 15 ML SOL BOTH EYES SCH (09:07)
[2020-07-14] MEDS: PANTOPRAZOLE 40 MG INJ VIAL IVP SCH (09:08)
[2020-07-14] MEDS: ENOXAPARIN 40 MG/0.4 ML SYR SUBQ SCH (09:09)
[2020-07-14] MEDS: METOPROLOL 25 MG TAB GT SCH ×2 (09:10→20:32)
--- NOTE | 2020-07-14 09:10 | NUR ---
ADMINISTERED SCHED MED PRESCRIBED PER MD ORDER. PT SHOWING SIGNS OF GAGGING AND STOMACH INDIGESTION. PT NODDED THAT SHE HAD AN UPSET STOMACH. PRN ZOFRAN ADMINISTERED PRESCRIBED PER MD ORDER. PT TOLERATED WELL. MEDICATION EDUCATION PERFORMED. PT APHASIC AND UNABLE TO VERBALIZE UNDERSTANDING. SAFETY MEASURES IN PLACE. WILL CONTINUE TO MONITOR
[2020-07-14] MEDS: VITAMIN D 400 IU TAB GT SCH (09:11)
[2020-07-14] MEDS: ATORVASTATIN 20 MG TAB PO SCH (09:11)
[2020-07-14] MEDS: ZINC SULF 220 MG CAP GT SCH (09:12)
[2020-07-14] MEDS: ASPIRIN 81 MG TAB.CHEW GT SCH (09:12)
[2020-07-14] MEDS: FUROSEMIDE 40 MG TAB GT SCH ×2 (09:13→20:32)
[2020-07-14] MEDS: ASCORBIC ACID 500 MG TAB GT SCH (09:13)
[2020-07-14] MEDS: ONDANSETRON 4 MG/2 ML VIAL IM/IVP PRN ×2 (09:14→18:01)
--- NOTE | 2020-07-14 11:30 | NUR ---
PT BLOOD SUGAR IS 200. PRN INSULIN TO BE ADMINISTERED PRESCRIBED PER MD ORDER. SAFETY MEASURES IN PLACE WILL CONTINUE TO MONITOR.
[2020-07-14 12:00] VITALS: BP 143/93
[2020-07-14] MEDS: THERAHONEY GEL 42.5 GM TP SCH (12:26)
--- NOTE | 2020-07-14 12:45 | NUR ---
ADMINISTERED PRN INSULIN AND HER SCHEDULED MED PRESCRIBED PER MD ORDER. PT TOLERATED WELL. MEDICATION EDUCATION PERFORMED. PT APHASIC AND UNABLE TO VERBALIZE UNDERSTANDING. SAFETY MEASURES IN PLACE. WILL CONTINUE TO MONITOR
--- NOTE | 2020-07-14 14:19 | NUR ---
PT RESTING IN BED. PLACED IPAD TO FACETIME WITH HER SON FLACC 0. RESPIRATIONS EVEN AND UNLABORED WITH NO SOB OR RESPIRATORY DISTRESS. SKIN WARM AND DRY TO TOUCH. SAFETY MEASURES IN PLACE. WILL CONTINUE TO MONITOR
[2020-07-14 16:00] VITALS: BP 143/93
--- NOTE | 2020-07-14 16:30 | NUR ---
PT BLOOD SUGAR IS 195. PRN INSULIN WILL BE ADMINISTERED PRESCRIBED PER MD ORDER. SAFETY MEASURES IN PLACE. WILL CONTINUE TO MONITOR
[2020-07-14] MEDS: ACETAMINOPHEN 325 MG TAB PO PRN (18:01)
[2020-07-14] MEDS: LORazepam 0.5 MG TAB GT SCH (18:05)
--- NOTE | 2020-07-14 18:12 | NUR ---
PT COMPLAINED OF MILD PAIN AND ANXIETY. PRN TYLENOL AND ATIVAN ADMINISTERED PRESCRIBED PER MD ORDER. ADMINISTERED PRN INSULIN PRESCRIBED PER MD ORDER. PT TOLERATED WELL. MEDICATION EDUCATION PERFORMED. PT APHASIC AND UNABLE TO VERBALIZE UNDERSTANDING. SAFETY MEASURES IN PLACE. WILL CONTINUE TO MONITOR
--- NOTE | 2020-07-14 19:10 | NUR ---
ENDORSED TO NIGHTSHIFT FOR CONTINUITY OF CARE. PT IS STABLE
--- NOTE | 2020-07-14 19:10 | NUR ---
RECEIVED PATIENT FROM AM SHIFT NURSE FOR CONTINUITY OF CARE. AAOX1-2, ABLE TO MAKE SIMPLE NEEDS KNOWN. TRACH TO VENT. VENT SETTINGS: AC/PC FIO2 35% RR 30 PEEP 5. MINIMAL SECRETIONS. NO S/S RESPIRATORY DISTRESS. NO C/O PAIN. NO S/S ACUTE DISTRESS. SKIN WARM, DRY. RIGHT UPPER ARM MIDLINE PATENT/INTACT. ABDOMEN SOFT, NONTENDER, NONDISTENDED. BOWEL SOUNDS ACTIVE X4 QUADRANTS. GT PATENT. CONTINUES ON ENTERAL FEEDING, TOLERATING WELL. NO RESIDUAL NOTED. HOB UP 30 DEGREES. DAVIS CATHETER PATENT WITH YELLOW URINE DRAINING TO GRAVITY. SAFETY PRECAUTIONS IN PLACE. ISOLATION PRECAUTIONS OBSERVED. CALL LIGHT WITHIN REACH. SAFETY PRECAUTIONS IN PLACE.
[2020-07-14 20:00] VITALS: BP 163/79
[2020-07-14] MEDS: INSULIN LANTUS 100 UNITS/ML 10 ML VIAL SUBQ SCH (20:24)
[2020-07-14] MEDS: MORPHINE SULFATE 2 MG/ML SYR IVP PRN (20:33)
[2020-07-14] MEDS: CLONIDINE HYDROCHLORIDE 0.1 MG TAB GT PRN (20:33)
[2020-07-14] MEDS: VANCOMYCIN 1,000 MG in DEXTROSE 5% 250 ML IV SCH (21:00)
--- NOTE | 2020-07-14 21:21 | NUR ---
PER PHARMACIST, HOLD VANCOMYCIN DUE TO VANCO TROUGH OF 20.3. PATIENT IS IN NO DISTRESS. OTHER DUE MEDS GIVEN ORDERED.
--- NOTE | 2020-07-14 23:10 | NUR ---
PATIENT RESTING COMFORTABLY IN BED. NO S/S ACUTE DISTRESS. CALL LIGHT WITHIN REACH. SAFETY PRECAUTIONS IN PLACE. ISOLATION PRECAUTIONS OBSERVED.
[2020-07-15] VITALS: BP 144/74
[2020-07-15] MEDS: GAUZE TP SCH ×2 (00:35→12:14)
--- NOTE | 2020-07-15 01:00 | NUR ---
MADE ROUNDS. PATIENT IS ASLEEP. NO S/S ACUTE DISTRESS. CALL LIGHT WITHIN REACH. ISOLATION PRECAUTIONS OBSERVED. SAFETY PRECAUTIONS IN PLACE.
--- NOTE | 2020-07-15 03:12 | NUR ---
PATIENT IS ASLEEP. NO S/S ACUTE DISTRESS. CALL LIGHT WITHIN REACH. ISOLATION PRECAUTIONS OBSERVED. SAFETY PRECAUTIONS IN PLACE.
[2020-07-15 04:00] VITALS: BP 146/75
[2020-07-15] MEDS: CEFEPIME 2,000 MG in DEXTROSE 5% 100 ML IV SCH ×2 (04:51→12:14)
--- NOTE | 2020-07-15 05:30 | NUR ---
PATIENT TURNED AND REPOSITIONED. SUCTIONED BY RT NEEDED. NO S/S ACUTE DISTRESS. CALL LIGHT WITHIN REACH. ISOLATION PRECAUTIONS OBSERVED. SAFETY PRECAUTIONS IN PLACE.
[2020-07-15 06:40] LABS: BASOPHILS # (AUTO) 0.1 K/uL (0.00-0.22); BASOPHILS % (AUTO) 0.9 % (0.0-2.0); EOSINOPHILS # (AUTO) 0.5 K/uL (0-0.4); HEMATOCRIT 23.2 % (36-48); HEMOGLOBIN 7.5 g/dL (12.0-16.0); LYMPHOCYTES # (AUTO) 1.6 K/uL (2.5-16.5); MEAN CORPUSCULAR HEMOGLOBIN 30 pg (27-31); MEAN CORPUSCULAR HGB CONC 32 g/dL (33-37); MEAN CORPUSCULAR VOLUME 92.6 fL (80-94); MONOCYTES # (AUTO) 0.6 K/uL (0.8-1.0); MONOCYTES % (AUTO) 4.9 % (1.7-9.3); NEUTROPHILS # (AUTO) 9.7 K/uL (1.8-7.7); PLATELET COUNT (AUTO) 247 K/uL (140-450); RED BLOOD CELL COUNT(AUTO) 2.51 MIL/uL (4.20-5.40); RED CELL DISTRIBUTION WIDTH 18.8 % (11.6-13.7); WHITE BLOOD COUNT (AUTO) 12.6 K/uL (4.8-10.8)
--- NOTE | 2020-07-15 06:51 | NUR ---
rec'd pt on carescape vent settings pc 30 rr 30 itime 0.67 peep 5 fio2 35% alarms on and audible and vent is plugged into red outlet,bvm at [facility] and sxn pt small amt of thick yellow\bowser secretions, b\s are coarse bilaterally, and pt is trach with portex 8 and pt is sleeping with no signs of distress noted at this time, will continue to monitor pt
[2020-07-15] MEDS: BLOOD GLUCOSE MONITORING 1 DEV DEV FS SCH ×3 (06:57→16:44)
[2020-07-15 07:13] LABS: CARBON DIOXIDE 29.5 mmol/L (21-32); CREATININE 0.9 mg/dL (0.6-1.3); POTASSIUM 3.5 mmol/L (3.5-5.1)
--- NOTE | 2020-07-15 07:15 | NUR ---
ENDORSED PATIENT TO AM SHIFT NURSE FOR CONTINUITY OF CARE.
--- NOTE | 2020-07-15 07:20 | NUR ---
RECEIVED REPORT FROM NIGHTSHIFT NURSE. PT RESTING IN BED. FLACC 0. RESPIRATIONS EVEN AND UNLABORED WITH NO SOB OR RESPIRATORY DISTRESS. SKIN WARM AND DRY TO TOUCH. IV SITE IN BIPIN MIDLINE IS CLEAN, DRY, AND INTACT. SAFETY MEASURES IN PLACE. WILL CONTINUE TO MONITOR
[2020-07-15 07:34] LABS: EOSINOPHILS % (AUTO) 4.3 % (0.0-4.0); LYMPHOCYTES % (AUTO) 12.9 % (20.5-51.1)
[2020-07-15 08:00] VITALS: BP 158/74
--- NOTE | 2020-07-15 09:30 | NUR ---
FAMILY AT WINDOW TO SEE PATIENT. PER [place] [facility], FAMILY MEMBERS WILL BE ALLOWED TO VISIT PATIENT. WILL CONTINUE TO MONITOR
--- NOTE | 2020-07-15 10:13 | NUR ---
PER HUYEN FROM [facility], THEY WILL BE ABLE TO ACCEPT PT AFTER 6PM TONIGHT DUE TO STAFFING ISSUE. CONTACTED [facility], SPOKE WITH RUBEN, [place] SCIENTIST TIME IS MOVED TO 6PM TONIGHT. DIVYA MADE AWARE.
--- NOTE | 2020-07-15 10:23 | NUR ---
AYANA FROM [facility] CALLED, STATED THEY DON'T HAVE AN RN TO GO WITH THEIR AMBULANCE AT 6 PM. DOCUMENT CONTROL COORDINATOR TIME IS MOVED TO [id number] HRS TONIGHT. KWABENA GALLAGHER MADE AWARE AND WILL NOTIFY PT'S FAMILY AND HUYEN AT [facility].
--- NOTE | 2020-07-15 10:32 | NUR ---
INFORMED LOREE THAT PATIENT WILL BE TRANSFERRED TO FACILITY AT [id number]. HUYEN VERBALIZED UNDERSTANDING. SAFETY MEASURES IN PLACE. WILL CONTINUE TO MONITOR
--- NOTE | 2020-07-15 10:53 | NUR ---
(07/15/20) RD FOLLOW UP COMPLETED PLEASE REFER TO NUTRITION PROGRESS NOTE UNDER CARE ACTIVITY FOR ESTIMATED NUTRITION NEEDS. RD RECOMMENDATIONS: 1. CONTINUE GLUCERNA 1.2 @ 45 ML/HR. THIS WILL PROVIDE 1080 ML OF VOLUME, 869 ML OF WATER, 1296 KCAL AND 64 GM PROTEIN; MEETS 100% OF ESTIMATED KCAL NEEDS AND 77% OF PROTEIN NEEDS; ADEQUATE. 2. CONTINUE FREE WATER FLUSH 100 ML Q6H. 3. CONTINUE VITAMIN C AND ZINC SUPPLEMENTATION FOR WOUND HEALING. 4. RD TO FOLLOW-UP 2-3 DAYS, HIGH RISK. NACHO IGNACIO, MS, RDN
[2020-07-15] MEDS: ONDANSETRON 4 MG/2 ML VIAL IM/IVP PRN (11:13)
[2020-07-15] MEDS: PANTOPRAZOLE 40 MG INJ VIAL IVP SCH (11:15)
[2020-07-15] MEDS: ATORVASTATIN 20 MG TAB PO SCH (11:16)
[2020-07-15] MEDS: ASPIRIN 81 MG TAB.CHEW GT SCH (11:17)
[2020-07-15] MEDS: FUROSEMIDE 40 MG TAB GT SCH (11:17)
[2020-07-15] MEDS: METOPROLOL 25 MG TAB GT SCH (11:17)
[2020-07-15] MEDS: ASCORBIC ACID 500 MG TAB GT SCH (11:18)
[2020-07-15] MEDS: VITAMIN D 400 IU TAB GT SCH (11:20)
[2020-07-15] MEDS: ZINC SULF 220 MG CAP GT SCH (11:20)
[2020-07-15] MEDS: ENOXAPARIN 40 MG/0.4 ML SYR SUBQ SCH (11:20)
[2020-07-15] MEDS: NACL 0.9% 1,000 ML IV SCH (11:21)
[2020-07-15] MEDS: POLYVINYL ALCOHOL 1.4% OP 15 ML SOL BOTH EYES SCH (11:21)
--- NOTE | 2020-07-15 11:30 | NUR ---
PT INSULIN IS 192. PRN INSULIN TO BE ADMINISTERED PRESCRIBED PER MD ORDER.
--- NOTE | 2020-07-15 11:39 | NUR ---
PER REVIEW ENGINEER JASWANT FAMILY WANTED TO SEE PATIENT AND HOLD OFF MOST MEDICATIONS UNTIL MOST FAMILY WAS DONE SEEING HER. WHILE DAUGHTER WAS AT BEDSIDE PT COMPLAINED OF NAUSEA AND PRN ZOFRAN WAS GIVEN PRESCRIBED PER MD ORDER. MEDICATION EDUCATION RECEIVED PATIENT IS APHASIC AND UNABLE TO VERBALIZE UNDERSTANDING. PT IS BREATHING SYMMETRICALLY AND IS UNLABORED. PT IS ALERT AND WARM TO TOUCH. ALL SAFETY MEASURES ARE IN PLACE. PT DENIES ANY PAIN AT THIS TIME WILL CONTINUE TO MONITOR.
[2020-07-15 12:00] VITALS: BP 128/81
--- NOTE | 2020-07-15 12:00 | NUR ---
DAUGHTER LEFT PATIENT ROOM AFTER VISITING. PT TOLERATED WELL. WILL CONTINUE TO MONITOR
[2020-07-15] MEDS: INSULIN LISPRO SLIDING SCALE 100 UNITS/ML VIAL SUBQ PRN (12:14)
--- NOTE | 2020-07-15 12:15 | NUR ---
ADMINISTERED PRN INSULIN PRESCRIBED PER MD ORDER. ADMINISTERED SCHED MED PRESCRIBED PER MD ORDER. PT TOLERATED WELL. MEDICATION EDUCATION PERFORMED. PT APHASIC AND UNABLE TO VERBALIZE UNDERSTANDING. SAFETY MEASURES IN PLACE. WILL CONTINUE TO MONITOR
--- NOTE | 2020-07-15 14:30 | NUR ---
RECEIVED CALL FROM [facility]. PT IS NOW GOING IN ROOM 124A INSTEAD OF 123B.RENDERED WOUND CARE PER MD ORDER. PT TOLERATED WELL. WOUND CARE PICTURES TAKEN SINCE PT IS GETTING DISCHARGED. PT IS BREATHING SYMMETRICALLY AND IS UNLABORED. PT IS ALERT AND WARM TO TOUCH. ALL SAFETY MEASURES ARE IN PLACE. PT DENIES ANY PAIN AT THIS TIME WILL CONTINUE TO MONITOR.
[2020-07-15] MEDS: THERAHONEY GEL 42.5 GM TP SCH (14:36)
[2020-07-15 16:00] VITALS: BP 141/81
--- NOTE | 2020-07-15 16:39 | NUR ---
PT IN BED RESTING COMFORTABLY. BLOOD GLUCOSE(118) ASSESSED. NO INSULIN NECESSARY PER MD ORDER. PT IS BREATHING SYMMETRICALLY AND IS UNLABORED. NO SIGNS OR SYMPTOMS OF DISTRESS. PT IS ALERT AND WARM TO TOUCH. ALL SAFETY MEASURES ARE IN PLACE. PT DENIES ANY PAIN AT THIS TIME WILL CONTINUE TO MONITOR.
[2020-07-15] MEDS: LORazepam 0.5 MG TAB GT SCH (17:10)
--- NOTE | 2020-07-15 17:15 | NUR ---
PT MOUTHS THAT SHE IS ANXIOUS AND NODS YES TO PRN. PRN MEDICATION GIVEN PER MD ORDER. Addendum: 07/15/20 at 1724 by Elina Armando RN RN PT MEDICATION ADMINISTERED ORDERED PER MD. MEDICATION EDUCATION RECEIVED PATIENT IS APHASIC AND NODS UNDERSTANDING. PT IS BREATHING SYMMETRICALLY AND IS UNLABORED. PT IS ALERT AND WARM TO TOUCH. ALL SAFETY MEASURES ARE IN PLACE. PT DENIES ANY PAIN AT THIS TIME WILL CONTINUE TO MONITOR.
--- NOTE | 2020-07-15 18:43 | NUR ---
CALLED [facility] TO GIVE REPORT [phone]. GAVE REPORT TO MYCHAL GALLAGHER. RN VERBALIZED UNDERSTANDING. PT IS TO GO TO ROOM 124 A AT 1900 VIA [facility]. SAFETY MEASURES IN PLACE WILL CONTINUE TO MONITOR.
--- NOTE | 2020-07-15 19:15 | NUR ---
RECEIVED REPORT OF PT IN STABLE CONDITION.PT IS READY TO TRANSFER TO [place].SHE IS TRACH TO [facility] W/FIO2 35 AND O2 SAT=95-96%.F/C PATENT.RT.ARM MIDLINE PATENT.NO ANY DISTRESS NOTED AT PRESENT TIME.WILL CONTINUE MONITORING.
--- NOTE | 2020-07-15 19:29 | NUR ---
BEDSIDE REPORT GIVEN TO [employer] PRODUCT ANALYST RN. THEY VERBALIZED UNDERSTANDING.PT IS BREATHING SYMMETRICALLY AND IS UNLABORED. PT IS ALERT AND WARM TO TOUCH. ALL SAFETY MEASURES ARE IN PLACE.
--- NOTE | 2020-07-15 20:24 | NUR ---
[facility] CAME AND PICKED UP PT IN STABLE CONDITION TO TRANSFER TO [place]. PT LEFT HERE AT 2009.
[2020-07-15] MEDS ORDERED: VANCOMYCIN 750 MG in DEXTROSE 5% 250 ML IV SCH (21:00)
== END 2020-07-15 20:15 | DRG 720 ==
LOC: MED 06:49 → MMU 08:57
PROVIDERS: ADMIT Hospitalist; ATTEND Hospitalist
PROC: 5A1955Z Respiratory Ventilation, Greater than 96 Consecutive Hours (ICD-10-PCS; principal; 2020-07-08)
DX: A41.89 Other specified sepsis (principal); U07.1 COVID-19; J12.82 Pneumonia due to coronavirus disease 2019; J96.21 Acute and chronic respiratory failure with hypoxia; E43 Unspecified severe protein-calorie malnutrition; J98.2 Interstitial emphysema; E83.41 Hypermagnesemia; E83.39 Other disorders of phosphorus metabolism; R74.01 Elevation of levels of liver transaminase levels; I21.A1 Myocardial infarction type 2; D68.59 Other primary thrombophilia; R13.10 Dysphagia, unspecified; R65.20 Severe sepsis without septic shock; E87.5 Hyperkalemia; F03.90 Unspecified dementia, unspecified severity, without behavioral disturbance, psychotic disturbance, mood disturbance, and anxiety; I50.43 Acute on chronic combined systolic (congestive) and diastolic (congestive) heart failure; I11.0 Hypertensive heart disease with heart failure; E11.9 Type 2 diabetes mellitus without complications; Z93.1 Gastrostomy status; Z93.0 Tracheostomy status; Z79.899 Other long term (current) drug therapy; Z79.4 Long term (current) use of insulin; Z79.82 Long term (current) use of aspirin
CPT/HCPCS: 36415; 36600; 70450; 71045; 71250; 76705; 78582; 80048; 80053; 80202; 81001; 82550; 82553; 82728; 82803; 82948; 83036; 83605; 83615; 83690; 83735; 83880; 84100; 84484; 85025; 85379; 85384; 85610; 85730; 86140; 87040; 87070; 87081; 87086; 87205; 89220; 93005; 94002; 94003; 94640; 99291; C9113; J0692; J1650; J1815; J2001; J2270; J2405; J3370; J3480; J7030; J7060; U0003